=== PATIENT | male | born 1955 | race Caucasian/White ===

== ENCOUNTER → 2018-08-23 12:50 | Outpatient (CLI) | payer MEDICARE, SELFPAY ==
[2018-08-23 13:10] LABS: D-Dimer Quantitative (DVT/PE) < 0.27 FEU/ug/m (0.27-0.49)
--- OUTSIDE RECORDS SUMMARY | 2018-10-16 20:02 | XMS RPT_ITS ---
:1955 Author Organization [facility] Care Team Providers Name Role Phone WOO CHANDLER Referring Unavailable WOO CHANDLER Attending Unavailable WOO CHANDLER Referring Unavailable WOO CHANDLER Referring Unavailable PASTORA BEAULIEU (GLOBAL SAFETY OFFICER) Attending Unavailable PASTORA BEAULIEU (GLOBAL SAFETY OFFICER) Referring Unavailable PASTORA BEAULIEU (GLOBAL SAFETY OFFICER) Referring Unavailable WOO CHANDLER Referring Unavailable WOO CHANDLER Attending Unavailable WOO CHANDLER Referring Unavailable PHYSICIAN, NONE Primary Care Unavailable GRANT ALEXANDRA MD Admitting Unavailable GRANT ALEXANDRA MD Attending Unavailable NoKaren judd Attending Unavailable Gordo Gonzalez Attending Unavailable Woo Chandler Referring Unavailable Woo Chandler Primary Care Unavailable Woo Chandler Attending Unavailable Woo Chandler Primary Care Unavailable Woo Chandler Referring Unavailable PROBLEMS PROBLEMS DATE TYPE CONDITION / CODE ATTENDING STATUS SOURCE 07/24/2015 Active Hyperlipidemia, NA Active [facility] unspecified / [facility] [place] E78.5(ICD-10) Repository 08/24/2018 Unknown M79.89 - Other Chandler, Active [facility] specified soft [facility] tissue disorders [facility] / M79.89(ICD-10) Repository 08/24/2018 Unknown M79.661 - Pain in Chandler, Active [facility] right lower leg / [facility] M79.661(ICD-10) Hospital Repository 08/23/2018 Active Other specified NA Active [facility] soft tissue [facility] [place] disorders / Repository M79.89(ICD-10) 08/23/2018 Active Pain in right NA Active [facility] lower leg / [facility] [place] M79.661(ICD-10) Repository 10/26/2015 Active Elevated prostate NA Active [facility] specific antigen [facility] [place] (PSA) / Repository R97.20(ICD-10) 07/24/2015 Active Gout, unspecified NA Active [facility] / M10.9(ICD-10) [facility] [place] Repository 07/24/2015 Active Other abnormal NA Active [facility] glucose / [facility] [place] R73.09(ICD-10) Repository PROCEDURES PROCEDURES No Procedure Records FoundRESULTS RESULTS PROGRESS Observed: 10/07/2018 Status: COMPLETED Source: [place] 9:07 AM [facility] RE[facility] HNO ID: [id number] Author: Woo Chandler Service: (none) Author Type: Physician Type: Progress Notes Filed: 10/07/2018 9:40 AM Note Text: This note was created using [employer]. Subjective Patient presents with: Physical Shane Vneus Joe was here for above. He was admitted in August 2018 for chest pain and stress test was negative. His hypertension, lipids, gout, and depression was controlled. Depression was controlled. He was aware of the need to lose weight and exercise more regularly. 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, cognitive deficits - Hyperlipidemia 07/24/2015 - Impaired glucose metabolism 07/24/2015 - Patent foramen ovale 05/2005 small, negative bubble study 01/15/2015 - Seasonal allergies 10/01/2015 PAST SURGICAL HISTORY Procedure Laterality Date - COLONOSCOP W/ OR W/O BRS SPEC 2005 Colonoscopy, negative - COLONOSCOP W/ OR W/O BRSH SPEC 10/15/15 Colonoscopy - LEFT HEART CATH,PERCUTANEOUS 03/19/2016 Cardiac cath, L heart FAMILY HISTORY Problem Relation Age of Onset - Diabetes Father - Coronary Artery Disease Father - Stroke Father 79 - Cancer Mother 58 - Diabetes Brother - Stroke Brother - Coronary Artery Disease Brother - Peripheral Artery Disease Brother amputee - None Sister - Colon Cancer Paternal Grandfather - Arthritis Sister rheumatoid - Cancer Sister lung cancer - GI Sister Crohn's - Skin Cancer Sister Social History Marital status: Spouse name: Years of education: Number of children: Occupational History Occupation Employer Comment SSD since stroke Social History Main Topics Smoking status: Former Smoker Packs/day: 0.50 Years: 8.00 Types: Cigarettes Quit date: 09/21/1979 Smokeless tobacco: Former User Types: Snuff Quit date: 07/22/2017 Alcohol use: Yes 36.0 oz/week Cans of Beer (12oz): 24 per week Comment: CAGE negative. 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 colchicine 0.6 mg tablet Take 2 tablets by mouth once as needed for gout attack. Take 1 tablet one hour later as needed. Etodolac 500 mg tablet Take 1 tablet by mouth twice daily as needed (gout attack. Take with food.). aspirin, enteric coated (ADULT LOW DOSE ASPIRIN) 81 mg EC tablet Take 1 tablet by mouth twice daily. B Complex Vitamins (SUPER B-50 COMPLEX) capsule Take 1 capsule by mouth once daily. No current facility-administered medications for this visit. Review of Systems Constitutional: Negative. HENT: Negative. Respiratory: Negative. Cardiovascular: Negative. Gastrointestinal: Negative. Genitourinary: Negative. Musculoskeletal: Negative. Neurological: Negative. Objective BP 124/84 (BP Site: Left Arm, BP Position: Sitting, BP Cuff Size: Large Adult) Pulse 84 Temp 36.5 ?C (97.7 ?F) (Temporal Artery) Resp 20 Ht 184.8 cm (6' 0.75) Wt 121.6 kg (268 lb) BMI 35.60 kg/m? Physical Exam Constitutional: He is oriented to person, place, and time. He appears well-nourished. Eyes: Conjunctivae are normal. No scleral icterus. Neck: No JVD present. Carotid bruit is not present. Cardiovascular: Normal heart sounds. Exam reveals no gallop. No murmur heard. Pulmonary/Chest: Breath sounds normal. Abdominal: Soft. There is no tenderness. Musculoskeletal: Normal range of motion. He exhibits no edema or tenderness. Neurological: He is alert and oriented to person, place, and time. Coordination normal. Psychiatric: He has a normal mood and affect. Component Latest Ref Rng AND Units 09/28/2018 Protein, Total 6.3 - 8.0 g/dL 7.7 Albumin 3.9 - 4.9 g/dL 4.1 Calcium 8.5 - 10.2 mg/dL 10.2 Bilirubin, Total 0.2 - 1.3 mg/dL 0.4 Alkaline Phosphatase 38 - 113 U/L 81 AST 14 - 40 U/L 25 Glucose 74 - 99 mg/dL 141 (H) BUN 9 - 24 mg/dL 17 Creatinine 0.73 - 1.22 mg/dL 1.14 Sodium 136 - 144 mmol/L 136 Potassium 3.7 - 5.1 mmol/L 4.0 Chloride 97 - 105 mmol/L 100 CO2 22 - 30 mmol/L 19 (L) Anion Gap 9 - 18 mmol/L 17 ALT 10 - 54 U/L 31 eGFR- >60 eGFR-All Other Races . >60 Cholesterol, Total <200 mg/dL 196 Triglyceride <150 mg/dL 207 (H) HDL Cholesterol >39 mg/dL 52 LDL Cholesterol <100 mg/dL 103 (H) Non HDL Cholesterol <130 mg/dL 144 (H) Fasting Time hrs 13 VLDL Cholesterol <30 mg/dL 41 (H) TC:HDL Ratio <5.10 3.77 LDL:HDL Ratio <2.54 1.98 Hemoglobin A1C 4.3 - 5.6 % 6.3 (H) Estimated Average Glucose mg/dL 134 PSA 0.00 - 2.59 ng/mL 2.72 (H) Assessment and Plan 1. Routine medical exam - ICD9: V70.0, ICD10: Z00.00 (primary diagnosis) - Recommended regular aerobic exercise. - Discussed need and benefit for weight loss. BMI 35.60 kg/(m2) - Vaccination(s) recommended today: Shingrix 2. Impaired glucose metabolism - ICD9: 790.29, ICD10: R73.09 Worse. I stressed lifestyle change. He declined medication. - COMP METABOLIC PANEL - HGB A1C 3. Hyperlipidemia, unspecified hyperlipidemia type - ICD9: 272.4, ICD10: E78.5 ACC/AHA estimated 10 year ASCVD risk: 11 %. To reduce risk, heart healthy diet is recommended. Also increased dose statin therapy recommended. Discussed medication dosage, usage, goals of therapy, and side effects. - LIPID PANEL BASIC - ATORVASTATIN 20 MG TABLET. Increase to two tablets. Call for side effects or change in tablet. 4. Essential hypertension - ICD9: 401.9, ICD10: I10 - good control 5. Depression, unspecified depression type - ICD9: 311, ICD10: F32.9 Controlled. 6. Elevated prostate specific antigen (PSA) - ICD9: 790.93, ICD10: R97.20 Stable. Recheck annually. 7. Obesity, Class II, BMI 35-39.9 - ICD9: 278.00, ICD10: E66.9 Weight loss. See printed instructions or information. Woo Chandler MD CNOV Observed: 10/07/2018 Status: COMPLETED Source: [place] 8:40 AM [facility] REPOSITORY Office Visit (INTMWS) SHANE JOE ([id number]) 1955 M Date Time Provider Department 10/07/18 8:40 AM WOO CHANDLER INTMWS During your visit today, we recorded the following information about you: Temperature Pulse Respiration Blood pressure 97.7 degrees 84/minute 20/minute 124/84 Weight Height 121.6 kg 1.848 m Woo Chandler MD 10/07/2018 9:40 AM Signed This note was created using NoteWriter. Subjective Patient presents with: Physical Shane Joe was here for above. He was admitted in August 2018 for chest pain and stress test was negative. His hypertension, lipids, gout, and depression was controlled. Depression was controlled. He was aware of the need to lose weight and exercise more regularly. 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, cognitive deficits - Hyperlipidemia 07/24/2015 - Impaired glucose metabolism 07/24/2015 - Patent foramen ovale 05/2005 small, negative bubble study 01/15/2015 - Seasonal allergies 10/01/2015 PAST SURGICAL HISTORY Procedure Laterality Date - COLONOSCOP W/ OR W/O [facility] SPEC 2005 Colonoscopy, negative - COLONOSCOP W/ OR W/O BRSH SPEC 10/15/15 Colonoscopy - LEFT HEART CATH,PERCUTANEOUS 03/19/2016 Cardiac cath, L heart FAMILY HISTORY Problem Relation Age of Onset - Diabetes Father - Coronary Artery Disease Father - Stroke Father 79 - Cancer Mother 58 - Diabetes Brother - Stroke Brother - Coronary Artery Disease Brother - Peripheral Artery Disease Brother amputee - None Sister - Colon Cancer Paternal Grandfather - Arthritis Sister rheumatoid - Cancer Sister lung cancer - GI Sister Crohn's - Skin Cancer Sister Social History Marital status: Spouse name: Years of education: Number of children: Occupational History Occupation Employer Comment SSD since stroke Social History Main Topics Smoking status: Former Smoker Packs/day: 0.50 Years: 8.00 Types: Cigarettes Quit date: 09/21/1979 Smokeless tobacco: Former User Types: Snuff Quit date: 07/22/2017 Alcohol use: Yes 36.0 oz/week Cans of Beer (12oz): 24 per week Comment: CAGE negative. 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 colchicine 0.6 mg tablet Take 2 tablets by mouth once as needed for gout attack. Take 1 tablet one hour later as needed. Etodolac 500 mg tablet Take 1 tablet by mouth twice daily as needed (gout attack. Take with food.). aspirin, enteric coated (ADULT LOW DOSE ASPIRIN) 81 mg EC tablet Take 1 tablet by mouth twice daily. B Complex Vitamins (SUPER B-50 COMPLEX) capsule Take 1 capsule by mouth once daily. No current facility-administered medications for this visit. Review of Systems Constitutional: Negative. HENT: Negative. Respiratory: Negative. Cardiovascular: Negative. Gastrointestinal: Negative. Genitourinary: Negative. Musculoskeletal: Negative. Neurological: Negative. Objective BP 124/84 (BP Site: Left Arm, BP Position: Sitting, BP Cuff Size: Large Adult) Pulse 84 Temp 36.5 ?C (97.7 ?F) (Temporal Artery) Resp 20 Ht 184.8 cm (6' 0.75) Wt 121.6 kg (268 lb) BMI 35.60 kg/m? Physical Exam Constitutional: He is oriented to person, place, and time. He appears well-nourished. Eyes: Conjunctivae are normal. No scleral icterus. Neck: No JVD present. Carotid bruit is not present. Cardiovascular: Normal heart sounds. Exam reveals no gallop. No murmur heard. Pulmonary/Chest: Breath sounds normal. Abdominal: Soft. There is no tenderness. Musculoskeletal: Normal range of motion. He exhibits no edema or tenderness. Neurological: He is alert and oriented to person, place, and time. Coordination normal. Psychiatric: He has a normal mood and affect. Component Latest Ref Rng AND Units 09/28/2018 Protein, Total 6.3 - 8.0 g/dL 7.7 Albumin 3.9 - 4.9 g/dL 4.1 Calcium 8.5 - 10.2 mg/dL 10.2 Bilirubin, Total 0.2 - 1.3 mg/dL 0.4 Alkaline Phosphatase 38 - 113 U/L 81 AST 14 - 40 U/L 25 Glucose 74 - 99 mg/dL 141 (H) BUN 9 - 24 mg/dL 17 Creatinine 0.73 - 1.22 mg/dL 1.14 Sodium 136 - 144 mmol/L 136 Potassium 3.7 - 5.1 mmol/L 4.0 Chloride 97 - 105 mmol/L 100 CO2 22 - 30 mmol/L 19 (L) Anion Gap 9 - 18 mmol/L 17 ALT 10 - 54 U/L 31 eGFR- >60 eGFR-All Other Races . >60 Cholesterol, Total <200 mg/dL 196 Triglyceride <150 mg/dL 207 (H) HDL Cholesterol >39 mg/dL 52 LDL Cholesterol <100 mg/dL 103 (H) Non HDL Cholesterol <130 mg/dL 144 (H) Fasting Time hrs 13 VLDL Cholesterol <30 mg/dL 41 (H) TC:HDL Ratio <5.10 3.77 LDL:HDL Ratio <2.54 1.98 Hemoglobin A1C 4.3 - 5.6 % 6.3 (H) Estimated Average Glucose mg/dL 134 PSA 0.00 - 2.59 ng/mL 2.72 (H) Assessment and Plan 1. Routine medical exam - ICD9: V70.0, ICD10: Z00.00 (primary diagnosis) - Recommended regular aerobic exercise. - Discussed need and benefit for weight loss. BMI 35.60 kg/(m2) - Vaccination(s) recommended today: Shingrix 2. Impaired glucose metabolism - ICD9: 790.29, ICD10: R73.09 Worse. I stressed lifestyle change. He declined medication. - COMP METABOLIC PANEL - HGB A1C 3. Hyperlipidemia, unspecified hyperlipidemia type - ICD9: 272.4, ICD10: E78.5 ACC/AHA estimated 10 year ASCVD risk: 11 %. To reduce risk, heart healthy diet is recommended. Also increased dose statin therapy recommended. Discussed medication dosage, usage, goals of therapy, and side effects. - LIPID PANEL BASIC - ATORVASTATIN 20 MG TABLET. Increase to two tablets. Call for side effects or change in tablet. 4. Essential hypertension - ICD9: 401.9, ICD10: I10 - good control 5. Depression, unspecified depression type - ICD9: 311, ICD10: F32.9 Controlled. 6. Elevated prostate specific antigen (PSA) - ICD9: 790.93, ICD10: R97.20 Stable. Recheck annually. 7. Obesity, Class II, BMI 35-39.9 - ICD9: 278.00, ICD10: E66.9 Weight loss. See printed instructions or information. MD Woo Cardenas MD 10/07/2018 9:35 AM Addendum LOW CARB DIET FOR WEIGHT LOSS. EDGAR OVER THE COUNTER MEDICATION FOR WEIGHT LOSS. INCREASE CHOLESTEROL MEDICATION TO TWO TABLETS AND CALL FOR CHANGE IN PRESCRIPTION BEFORE NEXT REFILL. Referring Provider: WOO CHANDLER [[id number]] Allergies As of Date: 10/07/2018 (No Known Allergies) Date Reviewed: 10/07/2018 Reviewed by: Amie Huynh LPN - Fully Assessed Reason for Visit: Physical [83] Primary Visit Diagnosis:Routine medical exam [Z00.00] Other Visit Diagnoses:Impaired glucose metabolism [R73.09] Hyperlipidemia, unspecified hyperlipidemia type [E78.5] Essential hypertension [I10] Depression, unspecified depression type [F32.9] Elevated prostate specific antigen (PSA) [R97.20] Obesity, Class II, BMI 35-39.9 [E66.9] Order(s):COMP METABOLIC PANEL [SQCMP] Order #: [id number] FUTURE HGB A1C [KEDVU0I] Order #: [id number] FUTURE LIPID PANEL BASIC [SQLIPB] Order #: [id number] FUTURE atorvastatin (LIPITOR) 20 mg tabletTake 2 tablets by mouth daily at bedtime.Disp: Rfl: Prescriptions as of 10/07/2018 Sig: ATORVASTATIN 20 MG TABLET Take 2 tablets by mouth daily* ALLOPURINOL 300 MG TABLET TAKE 1 TABLET DAILY PAROXETINE 20 MG TABLET TAKE 1 TABLET DAILY TAMSULOSIN 0.4 MG CAPSULE TAKE 1 CAPSULE DAILY AT BEDTI* LISINOPRIL 10 MG TABLET Take 1 tablet by mouth once d* COLCHICINE 0.6 MG TABLET Take 2 tablets by mouth once * ETODOLAC 500 MG TABLET Take 1 tablet by mouth twice * ASPIRIN 81 MG TABLET,DELAYED * Take 1 tablet by mouth twice * VITAMIN B COMPLEX CAPSULE Take 1 capsule by mouth once * Problem List As Of Date 10/07/2018 Noted Resolved Impaired glucose metabolism [R73.09] INVALID FOR* Gout with manifestations [M10.9] INVALID FOR* Hyperlipidemia [E78.5] INVALID FOR* Essential hypertension [I10] INVALID FOR* Seasonal allergies [J30.2] INVALID FOR* Depression [F32.9] INVALID FOR* Benign non-nodular prostatic hyperplasia with l*INVALID FOR* Elevated prostate specific antigen (PSA) [R97.2*INVALID FOR* Mild left inguinal hernia [K40.90] INVALID FOR* Obesity, Class II, BMI 35-39.9 [E66.9] INVALID FOR* Other instructions from your clinician: LOW CARB DIET FOR WEIGHT LOSS. EDGAR OVER THE COUNTER MEDICATION FOR WEIGHT LOSS. INCREASE CHOLESTEROL MEDICATION TO TWO TABLETS AND CALL FOR CHANGE IN PRESCRIPTION BEFORE NEXT REFILL. Prescriptions ordered this encounter Disp Refills Start End ATORVASTATIN 20 MG TABLET 10/07/2018 Class: Med Update Route: ORAL Sig: Take 2 tablets by mouth daily at bedtime. Medications Discontinued During This Encounter predniSONE (DELTASONE) 10 mg tablet 30 t* 0 08/23/2018 10/07/2018 Sig: Take 4 tabs daily x 3 days, then 3 tabs x 3 days, 2 tabs x 3 days, then 1 tab x3 days with food. Patient not taking: Reported on 10/07/2018 Disc: Reason for discontinue is not on file. atorvastatin (LIPITOR) 20 mg tablet 90 t* 3 09/13/2018 10/07/2018 Sig: TAKE 1 TABLET DAILY AT BEDTIME FOR CHOLESTEROL Disc: Reason for discontinue is not on file. Disposition: Return in about 6 months (around 04/06/2019). Follow-up and Disposition History Recorded Encounter Status:Closed by WOO CHANDLER MD on 10/07/18 PSA, DIAGNOSTIC Collected: 09/28/2018 Status: F Source: [place] 8:15 AM [facility] REPOSITORY TYPE CODE TESTS RESULT OUT OF REFERENCE UNITS RANGE LAB PSA 0.00-2.59 ng/mL PSA, High Diagnostic 2.72 Result Comment: Total PSA test methodology used is the Electrochemiluminescence Immunoassay. The presence of an abnormal result flag in this range (2.6 to 4.0 ng/mL) should not necessarily be an automatic indicator for prostate biopsy. For an individual patient, the significance of a PSA level should be interpreted in a broad clinical context, including age, race, family history, digital rectal exam, prostate size, results of prior te sting (prostate biopsy, free PSA, PCA3), and use of 5-alpha reductase inhibitors. Considering the high incidence of asymptomatic cancer in the general population that may not pose an ultimate risk to a patient, the decision to recommend urological evaluation or prostate biopsy should be individualized after consideration of all these factors. REFERENCE: Jose Ibrahim M.D., M.P.H., Delgado Glaser M.D., Ph.D., Jose G Monterroso M.D., Mallory Escamilla M.P.H., Dawn Craig Sc.D. Effect of Verification Bias on Screening for Prostate Cancer by Measurement of Prostatic Specific Antigen. N Engl J Med 2003,349:335-42. Performed By: #### PSA, CMP, LIPB, HBA1C #### [facility] [address] [place], [place] [address] COMP METABOLIC PANEL Collected: 09/28/2018 Status: F Source: [place] 8:15 AM [facility] REPOSITORY TYPE CODE TESTS RESULT OUT OF REFERENCE UNITS RANGE LAB TP 6.3-8.0 g/dL Protein, Total 7.7 LAB ALB 3.9-4.9 g/dL Albumin 4.1 LAB CA 8.5-10.2 mg/dL Calcium, Total 10.2 LAB TBIL 0.2-1.3 mg/dL Bilirubin, Total 0.4 LAB ALKP 38-113 U/L Alkaline Phosphatase 81 LAB AST 14-40 U/L AST 25 LAB GLU 74-99 mg/dL Glucose High 141 Result Comment: The [place] Diabetes Association (ADA) provides guidance for cutoff values for fasting glucose and random glucose. The ADA defines fasting as no caloric intake for at least 8 hours. Fas ting plasma glucose results between 100 to 125 mg/dL indicate increased risk for diabetes (prediabetes). Fasting plasma glucose results greater than or equal to 126 mg/dL meet the criteria for diagnosis of diabetes. In the absence of unequivocal hyperglycemia, results should be confirmed by repeat testing. In a patient with classic symptoms of hyperglycemia or hyperglycemic crisis, random plasma glucose results greater than or equal to 200 mg/dL meet the criteria for diagnosis of diabetes. Reference: Standards of Medical Care in Diabetes 2016, [place] Diabetes Association. Diabetes Care. 2016.39(Suppl 1). LAB BUN 9-24 mg/dL BUN 17 LAB CRET 0.73-1.22 mg/dL Creatinine 1.14 LAB NA 136-144 mmol/L Sodium 136 LAB K 3.7-5.1 mmol/L Potassium 4.0 LAB CL 97-105 mmol/L Chloride 100 LAB CO2 22-30 mmol/L CO2 Low 19 LAB AGAP 9-18 mmol/L Anion Gap 17 LAB ALT 10-54 U/L ALT 31 LAB GFRAA eGFR- Amer. >60 LAB GFRNAA . eGFR-All Other Races >60 Result Comment: eGFR (Estimated GFR) Units of measure: mL/min/1.73 meters squared eGFR is derived from the reexpressed MDRD Study equation using the following parameters: serum creatinine, age, gender and race. The creatinine assay has been calibrated to be traceable to IDMS. An eGFR <60 mL/min/1.73m2 for >3 months is consistent with chronic kidney disease. Refer to KDOQI guidelines for clinical interpretation. In patients with unstable renal function, e.g. those with acute kidney injury, the eGFR may not accurately reflect actual GFR. Performed By: #### PSA, CMP, LIPB, HBA1C #### [facility] [address] [place], [place] [address] LIPID PANEL, BASIC Collected: 09/28/2018 Status: F Source: [place] 8:15 AM [facility] REPOSITORY TYPE CODE TESTS RESULT OUT OF REFERENCE UNITS RANGE LAB CHOL <200 mg/dL Cholesterol 196 Result Comment: <200 mg/dL, Desirable 200-239 mg/dL, Borderline high >239 mg/dL, High LAB TRIGLY <150 mg/dL Triglyceride High 207 Result Comment: <150 mg/dL, Normal 150-199 mg/dL, Borderline high 200-499 mg/dL, High >499 mg/dL, Very high LAB HDL >39 mg/dL HDL-Cholesterol 52 Result Comment: 40-59 mg/dL, Acceptable >59 mg/dL, High: Negative risk factor for coronary heart disease <40 mg/dL, Low: Positive risk factor for coronary heart disease LAB LDL <100 mg/dL LDL-Cholesterol High 103 Result Comment: <100 mg/dL, Optimal 100-129 mg/dL, Near optimal/above optimal 130-159 mg/dL, Borderline high 160-189 mg/dL, High >189 mg/dL, Very high Secondary prevention optimal LDL Cholesterol levels are recommended to be < 70 mg/dL LAB NONHDL <130 mg/dL Non HDL High Cholesterol 144 Result Comment: <130 mg/dL, Optimal 130-159 mg/dL, Near optimal/above optimal 160-189 mg/dL, Borderline high 190-219 mg/dL, High >219 mg/dL, Very high Secondary prevention optimal non HDL Cholesterol levels are recommended to be < 100 mg/dL LAB FT hrs Fasting Time 13 LAB VLDL <30 mg/dL High VLDL Cholesterol 41 LAB TCHDL <5.10 TC:HDL Ratio 3.77 LAB LDLHDL <2.54 LDL:HDL Ratio 1.98 Result Comment: Reference: 1. National Cholesterol Education Program ATP III Guideline At-A-Glance Quick Desk Reference: National Heart, Lung, and Blood [place]. National Institutes of Health. 2001: NIH Publication No. 01-3305. 2. An International Atherosclerosis Society position paper: global recommendations for the management of dyslipidemia: executive summary, Atherosclerosis. 2014: 232(2):410-413. Performed By: #### PSA, CMP, LIPB, HBA1C #### [facility] [address] [place], [place] [address] HEMOGLOBIN A1C Collected: 09/28/2018 Status: F Source: [place] 8:15 AM [facility] REPOSITORY TYPE CODE TESTS RESULT OUT OF REFERENCE UNITS RANGE LAB HGBA1C 4.3-5.6 % High Hemoglobin A1c 6.3 Result Comment: [place] Diabetes Association guidelines indicate that patients with HgbA1c in the range 5.7-6.4% are at increased risk for development of diabetes, and intervention by lifestyle modification may be beneficial. HgbA1c greater or equal to 6.5% is considered diagnostic of diabetes. LAB HBA0 mg/dL Est. Average Glucose 134 Result Comment: eAG: (Estimated average glucose) is a calculated value from HgbA1c and is teleservices representative of the average blood glucose level in the last 2-3 month period. Performed By: #### PSA, CMP, LIPB, HBA1C #### [facility] [place] [address] [place], [place] [address] PROGRESS Observed: 09/08/2018 Status: COMPLETED Source: [place] 10:50 AM [facility] REPOSITORY HNO ID: [id number] Author: Syeda Fonseca LPN Service: (none) Author Type: (none) Type: Progress Notes Filed: 09/08/2018 12:56 PM Note Text: Called pt and reviewed he was admitted to [place] 09/06/18 and discharged 09/07/18 for acute chest pain. Records rec'd. He has a yearly appt with pcp arranged already for 10/07/18. Pt declined sooner hospital follow up. He reports he feels well. DON Observed: 09/08/2018 Status: COMPLETED Source: [place] 12:00 AM [facility] REPOSITORY Patient Outreach (INTMWS) SHANE JOE ([id number]) 1955 M Date Time Provider Department 09/08/18 WOO CHANDLER INTMWS During your visit today, we recorded the following information about you: Syeda Fonseca LPN 09/08/2018 12:56 PM Signed Called pt and reviewed he was admitted to [place] 09/06/18 and discharged 09/07/18 for acute chest pain. Records rec'd. He has a yearly appt with pcp arranged already for 10/07/18. Pt declined sooner hospital follow up. He reports he feels well. Allergies As of Date: 09/08/2018 (No Known Allergies) Date Reviewed: 08/23/2018 Reviewed by: Uzma Jones LPN - Fully Assessed Reason for Visit: Transition Of Care [4074] Prescriptions as of 09/08/2018 Sig: ALLOPURINOL 300 MG TABLET Take 1 tablet by mouth once d* ASPIRIN 81 MG TABLET,DELAYED * Take 1 tablet by mouth twice * ATORVASTATIN 20 MG TABLET Take 1 tablet by mouth daily * VITAMIN B COMPLEX CAPSULE Take 1 capsule by mouth once * COLCHICINE 0.6 MG TABLET Take 2 tablets by mouth once * ETODOLAC 500 MG TABLET Take 1 tablet by mouth twice * LISINOPRIL 10 MG TABLET Take 1 tablet by mouth once d* PAROXETINE 20 MG TABLET Take 1 tablet by mouth once d* PREDNISONE 10 MG TABLET Take 4 tabs daily x 3 days, t* TAMSULOSIN 0.4 MG CAPSULE Take 1 capsule by mouth daily* Problem List As Of Date 09/08/2018 Noted Resolved Impaired glucose metabolism [R73.09] INVALID FOR* Gout with manifestations [M10.9] INVALID FOR* Hyperlipidemia [E78.5] INVALID FOR* Essential hypertension [I10] INVALID FOR* Seasonal allergies [J30.2] INVALID FOR* Depression [F32.9] INVALID FOR* Benign non-nodular prostatic hyperplasia with l*INVALID FOR* Elevated prostate specific antigen (PSA) [R97.2*INVALID FOR* Mild left inguinal hernia [K40.90] INVALID FOR* Encounter Status:Closed by WOO CHANDLER MD on 09/08/18 NM MYOCARDIAL SPECT Observed: 09/07/2018 Status: F Source: [place] STRESS/REST 9:00 AM [facility] REPOSITORY ORIGINAL NM MYOCARDIAL SPECT STRESS/REST CLINICAL STATEMENT: chest pain TECHNIQUE: Lexiscan dose:0.4 mg Radiopharmaceutical (stress): Tc-99m Sestamibi Dose:11 mCi Radiopharmaceutical (rest): Tc-99m Sestamibi Dose:31.7 mCi SPECT acquisition and processing Reconstruction and reorientation of SPECT images into short axis, vertical and horizontal long axis planes Quantitative LVEF assessment COMPARISON:None REPORT:LEFT ventricle appears normal in size on both stress and rest images. On the resting images there is reduced radiotracer uptake involving the inferior and inferoseptal region which improves on the stress images, suggestive of inferior diaphragmatic attenuation artifact. R est of the myocardium has homogenous radiotracer uptake on both stress and rest images. Gated SPECT imaging reveal normal wall motion and normal end- systolic brightening and thickening of all myocardial segments. Calculated LVEF 74%. LEFT ventricle end-diastolic volume 56 mL. Tid ratio 0.89. IMPRESSION: 1. No evidence of inducible ischemia or prior myocardial infarction. 2. Normal wall motion and normal LEFT ventricle systolic function, LVEF 74%. 3. Inferior diaphragmatic attenuation artifact noted. 4. No prior study available for comparison. Interpreted By: Jack Larson Preliminary Report By: Jack Larson Electronically Signed By: Jack Larson Dictated Date: 09/07/2018 1:39:52 PM Prelim Date: 09/07/2018 1:39:52 PM Sign Date: 09/07/2018 1:42:22 PM CBC Collected: 09/07/2018 Status: F Source: [place] 5:19 AM [facility] REPOSITORY TYPE CODE TESTS RESULT OUT OF REFERENCE UNITS RANGE LAB WBC(LOINC) 4.60-10.80 10 3/mcL WBC 9.30 LAB RBCCT(LOINC 4.04-6.13 10 6/mcL ) RBC 5.04 LAB HGB(LOINC) 14.0-18.0 G/dL Hgb 15.7 LAB HCT(LOINC) 42.0-52.0 % Hct 46.4 LAB MCV(LOINC) 80.0-94.0 fL MCV 92.0 LAB MCH(LOINC) 27.0-31.2 pg MCH 31.2 LAB MCHC(LOINC) 31.8-35.4 G/dL MCHC 33.9 LAB RDW(LOINC) 11.5-14.5 % RDW 14.2 LAB PLT(LOINC) 130-400 10 3/mcL Platelet 297 LAB MPV(LOINC) 7.4-10.4 fL Low MPV 7.3 Performed By: #### CBC, ADIFF, ANEU #### [address] [address] #### BMP, GFR, TROP #### [place] [address] .AUTO DIFF Collected: 09/07/2018 Status: F Source: [facility] 5:19 AM [facility] REPOSITORY TYPE CODE TESTS RESULT OUT OF REFERENCE UNITS RANGE LAB YENI(LOINC) 37.0-80.0 % Neutrophil % 59.8 LAB LYM(LOINC) 10.0-50.0 % Lymphocyte % 31.4 LAB MON(LOINC) 1.7-13.0 % Monocyte % 7.5 LAB EO(LOINC) 0.0-7.0 % Eosinophil % 0.8 LAB BAS(LOINC) 0.0-2.5 % Basophil % 0.5 LAB ABLYM(LOIN 0.77-3.85 10 3/mcL C) Lymphocyte, 2.90 Absolute LAB ERLIN(LOINC 0.15-1.00 10 3/mcL ) Monocyte, 0.70 Absolute LAB AEOS(LOINC 0.00-0.40 10 3/mcL ) Eosinophil, 0.10 Absolute LAB ABAS(LOINC 0.00-0.19 10 3/mcL ) Basophil, 0.00 Absolute Performed By: #### CBC, ADIFF, ANEU #### [address] [address] #### BMP, GFR, TROP #### [address] [address] .NEUABS Collected: 09/07/2018 Status: F Source: [facility] 5:19 AM [facility] REPOSITORY TYPE CODE TESTS RESULT OUT OF REFERENCE UNITS RANGE LAB ANEU(LOINC) 2.85-6.16 10 3/mcL Neutrophil, 5.60 Absolute Performed By: #### CBC, ADIFF, ANEU #### [address] [address] #### BMP, GFR, TROP #### [place] [address] BMP Collected: 09/07/2018 Status: F Source: [facility] 5:19 AM [facility] REPOSITORY TYPE CODE TESTS RESULT OUT OF REFERENCE UNITS RANGE LAB GLU(LOINC) 80-115 mg/dL Glucose High Level 137 LAB NA(LOINC) 136-145 mmol/L Sodium Level 137 LAB K(LOINC) 3.5-5.1 mmol/L Potassium Level 4.5 LAB CL(LOINC) 98-107 mmol/L Chloride 102 LAB CO2(LOINC) 23-31 mmol/L CO2 27 LAB EBAL(LOINC mEq/L ) Electrolyte Balance 8.0 LAB BUN(LOINC) 7-18 mg/dL BUN 15 LAB CRE(LOINC) 0.70-1.30 mg/dL Creatinine Lvl (s) 1.11 LAB BC(LOINC) 7-27 ratio BUN/Creatinine 14 Ratio LAB CA(LOINC) 8.4-10.2 mg/dL Calcium Lvl 8.8 Performed By: #### CBC, ADIFF, ANEU #### [address] [address] #### BMP, GFR, TROP #### [address] [address] .GFR Collected: 09/07/2018 Status: F Source: [facility] 5:19 AM [facility] REPOSITORY TYPE CODE TESTS RESULT OUT OF REFERENCE UNITS RANGE LAB GFRAA(LOINC ml/min/1.73 ) sqm GFR 81 [place] Result Comment: GFR Population mean for , Non- Americans Ages 20-29 = 116 mL/min/1.73 sq.m. Ages 30-39 = 107 mL/min/1.73 sq.m. Ages 40-49 = 99 mL/min/1.73 sq.m. Ages 50-59 = 93 mL/min/1.73 sq.m. Ages 60-69 = 85 mL/min/1.73 sq.m. Ages 70+ = 75 mL/min/1.73 sq.m. Chronic Kidney Disease: Less than 60 mL/min/1.73 square meters End Stage Renal Disease: Less than 15 mL/min/1.73 square meters LAB GFRNO(LOINC) ml/min/1.73sqm GFR Non- 67 Result Comment: GFR Population mean for , Non- Americans Ages 20-29 = 116 mL/min/1.73 sq.m. Ages 30-39 = 107 mL/min/1.73 sq.m. Ages 40-49 = 99 mL/min/1.73 sq.m. Ages 50-59 = 93 mL/min/1.73 sq.m. Ages 60-69 = 85 mL/min/1.73 sq.m. Ages 70+ = 75 mL/min/1.73 sq.m. Chronic Kidney Disease: Less than 60 mL/min/1.73 square meters End Stage Renal Disease: Less than 15 mL/min/1.73 square meters Performed By: #### CBC, FAUSTINO, ANEU #### [address] [address] #### BMP, GFR, TROP #### [address] [address] TROP Collected: 09/07/2018 Status: F Source: [facility] 5:19 AM [facility] REPOSITORY TYPE CODE TESTS RESULT OUT OF REFERENCE UNITS RANGE LAB TROP(LOINC) 0.000-0.040 ng/mL Troponin <0.020 Result Comment: Troponin I reference range: 0.00-0.040 ng/mL Negative and non-diagnostic. >0.040 ng/mL Consistent with cardiac damage, increased clinical risk and possibility of myocardial infarction. Serial measurements, a rise & fall in test results, clinical history, appropriate symptoms and/or ECG changes may help assess possibility of DE. *Other non-acute coronary syndrome conditions such as CHF, myocarditis, pulmonary emboli, sepsis and cardiac surgery could result in myocardial damage and increased troponin levels. Performed By: #### CBC, ADIFF, ANEU #### [facility] [address] [place], [place] [address] #### BMP, GFR, TROP #### [address] [address] TROP Collected: 09/06/2018 Status: F Source: [facility] 8:20 PM [facility] REPOSITORY TYPE CODE TESTS RESULT OUT OF REFERENCE UNITS RANGE LAB TROP(LOINC) 0.000-0.040 ng/mL Troponin <0.020 Result Comment: Troponin I reference range: 0.00-0.040 ng/mL Negative and non-diagnostic. >0.040 ng/mL Consistent with cardiac damage, increased clinical risk and possibility of myocardial infarction. Serial measurements, a rise & fall in test results, clinical history, appropriate symptoms and/or ECG changes may help assess possibility of DE. *Other non-acute coronary syndrome conditions such as CHF, myocarditis, pulmonary emboli, sepsis and cardiac surgery could result in myocardial damage and increased troponin levels. Performed By: #### TROP #### [place] [id number] XR CHEST 2 VIEWS Observed: 09/06/2018 Status: F Source: [place] 3:01 PM [facility] REPOSITORY ORIGINAL 2 views chest CLINICAL HISTORY: Chest pain COMPARISON: None. FINDINGS: The cardiomediastinal contours are normal. The LEFT diaphragm is slightly elevated. There is no focal airspace disease. No nodule or mass is identified. There is no appreciable pleural fluid o r pneumothorax. No suspicious osseous abnormality is identified. Mild degenerative changes seen of the spine. IMPRESSION: 1. No acute radiographic findings. Interpreted By: Meliton Crowley MD Preliminary Report By: Meliton Crowley MD Electronically Signed By: Meliton Crowley MD Dictated Date: 09/06/2018 3:08:45 PM Prelim Date: 09/06/2018 3:08:45 PM Sign Date: 09/06/2018 3:09:31 PM TROP Collected: 09/06/2018 Status: F Source: [place] 2:15 PM [facility] REPOSITORY TYPE CODE TESTS RESULT OUT OF REFERENCE UNITS RANGE LAB TROP(LOINC) 0.000-0.040 ng/mL Troponin <0.020 Result Comment: Troponin I reference range: 0.00-0.040 ng/mL Negative and non-diagnostic. >0.040 ng/mL Consistent with cardiac damage, increased clinical risk and possibility of myocardial infarction. Serial measurements, a rise & fall in test results, clinical history, appropriate symptoms and/or ECG changes may help assess possibility of DE. *Other non-acute coronary syndrome conditions such as CHF, myocarditis, pulmonary emboli, sepsis and cardiac surgery could result in myocardial damage and increased troponin levels. Performed By: #### TROP, GFR, CMP #### [address] [address] #### CBC, ADIFF, ANEU #### [address] [address] CBC Collected: 09/06/2018 Status: F Source: [facility] 2:15 PM [facility] REPOSITORY TYPE CODE TESTS RESULT OUT OF REFERENCE UNITS RANGE LAB WBC(LOINC) 4.60-10.80 10 3/mcL WBC 10.60 LAB RBCCT(LOINC 4.04-6.13 10 6/mcL ) RBC 5.18 LAB HGB(LOINC) 14.0-18.0 G/dL Hgb 15.8 LAB HCT(LOINC) 42.0-52.0 % Hct 47.7 LAB MCV(LOINC) 80.0-94.0 fL MCV 92.2 LAB MCH(LOINC) 27.0-31.2 pg MCH 30.5 LAB MCHC(LOINC) 31.8-35.4 G/dL MCHC 33.1 LAB RDW(LOINC) 11.5-14.5 % RDW 14.0 LAB PLT(LOINC) 130-400 10 3/mcL Platelet 329 LAB MPV(LOINC) 7.4-10.4 fL Low MPV 7.3 Performed By: #### TROP, GFR, CMP #### [address] [address] #### CBC, ADIFF, ANEU #### [address] [address] .AUTO DIFF Collected: 09/06/2018 Status: F Source: [facility] 2:15 PM [facility] REPOSITORY TYPE CODE TESTS RESULT OUT OF REFERENCE UNITS RANGE LAB YENI(LOINC) 37.0-80.0 % Neutrophil % 56.5 LAB LYM(LOINC) 10.0-50.0 % Lymphocyte % 37.7 LAB MON(LOINC) 1.7-13.0 % Monocyte % 4.9 LAB EO(LOINC) 0.0-7.0 % Eosinophil % 0.4 LAB BAS(LOINC) 0.0-2.5 % Basophil % 0.5 LAB ABLYM(LOIN 0.77-3.85 10 3/mcL C) High Lymphocyte, 4.00 Absolute LAB ERLIN(LOINC 0.15-1.00 10 3/mcL ) Monocyte, 0.50 Absolute LAB AEOS(LOINC 0.00-0.40 10 3/mcL ) Eosinophil, 0.00 Absolute LAB ABAS(LOINC 0.00-0.19 10 3/mcL ) Basophil, 0.10 Absolute Performed By: #### TROP, GFR, CMP #### [place] [address] #### CBC, ADIFF, ANEU #### [address] [address] .NEUABS Collected: 09/06/2018 Status: F Source: [facility] 2:15 [facility] REPOSITORY TYPE CODE TESTS RESULT OUT OF REFERENCE UNITS RANGE LAB ANEU(LOINC) 2.85-6.16 10 3/mcL Neutrophil, 6.00 Absolute Performed By: #### TROP, GFR, CMP #### [place] [address] #### CBC, ADIFF, ANEU #### [address] [address] .GFR Collected: 09/06/2018 Status: F Source: [facility] 2:15 PM [facility] REPOSITORY TYPE CODE TESTS RESULT OUT OF REFERENCE UNITS RANGE LAB GFRAA(LOINC ml/min/1.73 ) sqm GFR 83 [place] Result Comment: GFR Population mean for , Non- Americans Ages 20-29 = 116 mL/min/1.73 sq.m. Ages 30-39 = 107 mL/min/1.73 sq.m. Ages 40-49 = 99 mL/min/1.73 sq.m. Ages 50-59 = 93 mL/min/1.73 sq.m. Ages 60-69 = 85 mL/min/1.73 sq.m. Ages 70+ = 75 mL/min/1.73 sq.m. Chronic Kidney Disease: Less than 60 mL/min/1.73 square meters End Stage Renal Disease: Less than 15 mL/min/1.73 square meters LAB GFRNO(LOINC) ml/min/1.73sqm GFR Non- 69 Result Comment: GFR Population mean for , Non- Americans Ages 20-29 = 116 mL/min/1.73 sq.m. Ages 30-39 = 107 mL/min/1.73 sq.m. Ages 40-49 = 99 mL/min/1.73 sq.m. Ages 50-59 = 93 mL/min/1.73 sq.m. Ages 60-69 = 85 mL/min/1.73 sq.m. Ages 70+ = 75 mL/min/1.73 sq.m. Chronic Kidney Disease: Less than 60 mL/min/1.73 square meters End Stage Renal Disease: Less than 15 mL/min/1.73 square meters Performed By: #### TROP, GFR, CMP #### [place] [address] #### CBC, ADIFF, ANEU #### [address] [address] CMP Collected: 09/06/2018 Status: F Source: [facility] 2:15 PM [facility] REPOSITORY TYPE CODE TESTS RESULT OUT OF REFERENCE UNITS RANGE LAB GLU(LOINC) 80-115 mg/dL Glucose Level 112 LAB NA(LOINC) 136-145 mmol/L Low Sodium Level 135 LAB K(LOINC) 3.5-5.1 mmol/L Potassium Level 3.9 LAB CL(LOINC) 98-107 mmol/L Chloride 98 LAB CO2(LOINC) 23-31 mmol/L CO2 26 LAB EBAL(LOINC mEq/L ) Electrolyte Balance 11.0 LAB BUN(LOINC) 7-18 mg/dL BUN 17 LAB CRE(LOINC) 0.70-1.30 mg/dL Creatinine Lvl (s) 1.09 LAB BC(LOINC) 7-27 ratio BUN/Creatinine 16 Ratio LAB CA(LOINC) 8.4-10.2 mg/dL Calcium Lvl 9.5 LAB PROT(LOINC 6.4-8.2 G/dL ) Total High Protein 8.4 LAB ALB(LOINC) 3.4-4.8 G/dL Albumin Level 3.9 LAB GLB(LOINC) G/dL Globulin 4.5 LAB AG(LOINC) 1.1-2.5 ratio Low A/G Ratio 0.9 LAB BILT(LOINC 0.2-1.0 mg/dL ) Bili Total 0.6 LAB AP(LOINC) 40-135 U/L Alk Phos 97 LAB AST(LOINC) 10-40 U/L AST/SGOT 24 LAB ALT(LOINC) 10-35 U/L ALT/SGPT High 39 Performed By: #### TROP, GFR, CMP #### [address] [address] #### CBC, ADIFF, ANEU #### [facility] [address] [place], [place] [address] D DIMER Collected: 08/23/2018 Status: F Source: [place] 12:30 PM [facility] REPOSITORY TYPE CODE TESTS RESULT OUT OF REFERENCE UNITS RANGE LAB DDMER <500 ng/mL FEU Test D sent to [facility]. Result Comment: Account Credited HIDE D-DIMER QUANTITATIVE Collected: 08/23/2018 Status: F Source: [place] (DVT/PE) 12:30 PM [facility] REPOSITORY TYPE CODE TESTS RESULT OUT OF RANGE REFERENCE UNITS LAB L300.8000 0.27-0.49 FEU/ug/m Low D-DIMER < 0.27 QUANT Result Comment: NORMAL D-Dimer level (<0.50) indicates no DVT or PE. Performed By: #### L300.8000 #### [facility] [address] [place], [address] PROGRESS Observed: 08/23/2018 Status: COMPLETED Source: [place] 11:49 AM [facility] REPOSITORY HNO ID: [id number] Author: Pastora Beaulieu (Cns) Service: (none) Author Type: Nurse Specialist Type: Progress Notes Filed: 08/23/2018 12:16 PM Note Text: OUTPATIENT VISIT DATE August 23, 2018 OUTPATIENT VISIT TYPE ESTABLISHED PRIMARY CARE PHYSICIAN: Woo Chandler MD CHIEF COMPLAINT: Patient presents with: Ankle Pain: R ankle History of Present Illness: Shane Joe is a 63 year old male who was last seen 04/2018 by Woo Chandler MD. He has been seen in the past for ACTIVE PROBLEM LIST Impaired Glucose Metabolism Gout With Manifestations Hyperlipidemia Essential Hypertension Seasonal Allergies Depression Benign Non-Nodular Prostatic Hyperplasia With Lower Urinary Tract Symptoms Elevated Prostate Specific Antigen (Psa) Mild Left Inguinal Hernia Since the last visit, he states that he fell asleep in his recliner at home after drinking several beers and had his foot elevated on a table / hard surface for several hours on Thursday. Now noting redness of foot, pain in calf and ankle with flexion, extension and walking, swelling of right lower leg. Reports feels like phlebitis he has had in the past. Does take allopurinol for gout. Calculator: Modified Wells score for deep vein thrombosis (DVT) in adults ? [] Active cancer (treatment ongoing or within the previous six months or palliative) (1 point) [x] Paralysis, paresis, or recent plaster immobilization of the lower extremities (1 point) [] Recently bedridden for more than three days or major surgery within four weeks (1 point) [] Localized tenderness along the distribution of the deep venous system (1 point) [x] Entire leg swollen (1 point) [] Calf swelling by more than 3 cm when compared with the asymptomatic leg (measured below tibial tuberosity) (1 point) [x] Pitting edema (greater in the symptomatic leg) (1 point) [] Collateral superficial veins (nonvaricose) (1 point) [x] Alternative diagnosis as likely or more likely than that of DVT (-2 points) [] Previously documented DVT (1 point) ? Total criteria point count: 1 ? No recent hospital or ED visits. No new medical problems or medications. Able to obtain medications. No problems with taking medications or note side effects. 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, cognitive deficits - Hyperlipidemia 07/24/2015 - Impaired glucose metabolism 07/24/2015 - Patent foramen ovale 05/2005 small, negative bubble study 01/15/2015 - Seasonal allergies 10/01/2015 PAST SURGICAL HISTORY Procedure Laterality Date - COLONOSCOP W/ OR W/O [facility] SPEC 2005 Colonoscopy, negative - COLONOSCOP W/ OR W/O [facility] SPEC 10/15/15 Colonoscopy - LEFT HEART CATH,PERCUTANEOUS 03/19/2016 Cardiac cath, L heart FAMILY HISTORY Problem Relation Age of Onset - Diabetes Father - Coronary Artery Disease Father - Stroke Father 79 - Cancer Mother 58 - Diabetes Brother - Stroke Brother - Coronary Artery Disease Brother - Peripheral Artery Disease Brother amputee - None Sister - Colon Cancer Paternal Grandfather - Arthritis Sister rheumatoid - Cancer Sister lung cancer - GI Sister Crohn's - Skin Cancer Sister Social History Substance Use Topics - Smoking status: Former Smoker Packs/day: 0.50 Years: 8.00 Types: Cigarettes Quit date: 09/21/1979 - Smokeless tobacco: Former User Types: Snuff Quit date: 07/22/2017 - Alcohol use 36.0 oz/week 24 Cans of Beer (12oz) per week Comment: CAGE negative. ALLERGIES: ALLERGIES No Known Allergies MEDICATIONS tamsulosin ER (FLOMAX) 0.4 mg cp24 Take 1 capsule by mouth daily at bedtime. lisinopril (ZESTRIL) 10 mg tablet Take 1 tablet by mouth once daily. PARoxetine (PAXIL) 20 mg tablet Take 1 tablet by mouth once daily. atorvastatin (LIPITOR) 20 mg tablet Take 1 tablet by mouth daily at bedtime. For cholesterol. allopurinol (ZYLOPRIM) 300 mg tablet Take 1 tablet by mouth once daily. colchicine 0.6 mg tablet Take 2 tablets by mouth once as needed for gout attack. Take 1 tablet one hour later as needed. Etodolac 500 mg tablet Take 1 tablet by mouth twice daily as needed (gout attack. Take with food.). B Complex Vitamins (SUPER B-50 COMPLEX) capsule Take 1 capsule by mouth once daily. aspirin, enteric coated (ADULT LOW DOSE ASPIRIN) 81 mg EC tablet Take 1 tablet by mouth twice daily. REVIEW OF SYSTEMS: GENERAL: Negative for: Weight loss or gain, Fever or Chills, Weakness and Sleep difficulties. Physical Examination: BP 124/88 Pulse 92 Resp 16 Wt 265 lb (120.2kg) BP w/Orthostatic Vitals Date and Time Orthostatic BP Orthostatic Pulse BP Pulse BP Position BP Site BP Cuff Size 08/23/18 1129 -- -- 124/88 92 Sitting Left Arm Large Adult Peak Flow Date and Time PF Resp 08/23/18 1129 -- 16 General appearance: Well appearing, alert, in no acute distress, well-hydrated, well nourished. Skin: Skin color, texture, turgor normal, no suspicious rashes or lesions Lungs: Lungs clear to auscultation. No wheezing, rhonchi, rales Heart: RRR without murmur, gallop, or rubs. No ectopy Extremities: + redness and warmth right great toe, swelling of foot and ankle on right, no clubbing or cyanosis. Good capillary refill. Musculoskeletal: Pain with ankle motion, flexion , extension Peripheral pulses: Normal Neuro: Gait normal. Sensation grossly intact. Reviewed chart, outside records, tests I personally interviewed, confirmed and edited the above information if obtained by others. TESTING: Glucose (mg/dL) Date Value 03/30/2018 121 Potassium (mmol/L) Date Value 03/30/2018 4.3 Sodium (mmol/L) Date Value 03/30/2018 135 Chloride (mmol/L) Date Value 03/30/2018 98 CO2 (mmol/L) Date Value 03/30/2018 27 Creatinine (mg/dL) Date Value 03/30/2018 0.94 BUN (mg/dL) Date Value 03/30/2018 16 Anion Gap (mmol/L) Date Value 03/30/2018 10 Calcium (mg/dL) Date Value 03/30/2018 9.6 Glucose (mg/dL) Date Value 03/30/2018 121 Potassium (mmol/L) Date Value 03/30/2018 4.3 Sodium (mmol/L) Date Value 03/30/2018 135 Chloride (mmol/L) Date Value 03/30/2018 98 CO2 (mmol/L) Date Value 03/30/2018 27 Creatinine (mg/dL) Date Value 03/30/2018 0.94 BUN (mg/dL) Date Value 03/30/2018 16 Anion Gap (mmol/L) Date Value 03/30/2018 10 Calcium (mg/dL) Date Value 03/30/2018 9.6 Protein, Total (g/dL) Date Value 09/30/2017 7.6 Albumin (g/dL) Date Value 09/30/2017 4.1 Bilirubin, Total (mg/dL) Date Value 09/30/2017 0.5 Alkaline Phosphatase (U/L) Date Value 09/30/2017 76 AST (U/L) Date Value 09/30/2017 21 ALT (U/L) Date Value 09/30/2017 21 Hemoglobin (g/dL) Date Value 09/30/2017 16.0 Hematocrit (%) Date Value 09/30/2017 48.7 WBC (k/uL) Date Value 09/30/2017 6.67 Cholesterol, Total (mg/dL) Date Value 09/30/2017 173 HDL Cholesterol (mg/dL) Date Value 09/30/2017 56 LDL Cholesterol (mg/dL) Date Value 09/30/2017 91 Triglyceride (mg/dL) Date Value 09/30/2017 132 Hemoglobin A1C Date Value Ref Range Status 03/30/2018 6.0 (H) 4.3 - 5.6 % Final 09/30/2017 6.0 (H) 4.3 - 5.6 % Final 03/20/2017 6.2 (H) 4.3 - 5.6 % Final Comment: [place] [employer] guidelines indicate that patients with HgbA1c in the range 5.7-6.4% are at increased risk for development of diabetes, and intervention by lifestyle modification may be beneficial. HgbA1c greater or equal to 6.5% is considered diagnostic of diabetes. 09/23/2016 6.4 (H) 4.3 - 5.6 % Final Comment: [place] [employer] guidelines indicate that patients with HgbA1c in the range 5.7-6.4% are at increased risk for development of diabetes, and intervention by lifestyle modification may be beneficial. HgbA1c greater or equal to 6.5% is considered diagnostic of diabetes. 10/23/2015 6.1 (H) 4.3 - 5.6 % Final Comment: [place] [employer] guidelines indicate that patients with HgbA1c in the range 5.7-6.4% are at increased risk for development of diabetes, and intervention by lifestyle modification may be beneficial. HgbA1c greater or equal to 6.5% is considered diagnostic of diabetes. Ejection Fraction: No results found IMPRESSION: Mr. Joe is a 63 year old man presents for follow up of ankle and leg pain, swelling After my examination and review of data, I make the following recommendations. PLAN AND RECOMMENDATIONS: 1. Acute right ankle pain - ICD9: 719.47, 338.19, ICD10: M25.571 (primary diagnosis) 2. Leg swelling - ICD9: 729.81, ICD10: M79.89 - D-DIMER - US LEG VEIN DVT UNL VAS LAB 3. Right calf pain - ICD9: 729.5, ICD10: M79.661 - D-DIMER - US LEG VEIN DVT UNL VAS LAB Redness of great toe,generalized swelling lower extremity, pain in ankle and calf Differential DVT vs gout flare Will check D dimer and US DVT today If negative, likely gout flare, treat with prednisone, follow up one week in clinic. If positive, anticoagulation as indicated Did take two ASA today Advised to go to ER if develops chest pain, shortness of breath, or severe worsening of symptoms. Discussed risks, benefits, alternatives, and potential side effects of medications. Mr. Joe expressed understanding and agreed with the plan. Pastora Beaulieu APRN.GLOBAL SAFETY OFFICER CNOV Observed: 08/23/2018 Status: COMPLETED Source: [place] 11:20 AM [facility] REPOSITORY Office Visit (INTMWS) SHANE JOE ([id number]) 1955 M Date Time Provider Department 08/23/18 11:20 AM PASTORA BEAULIEU ([facility]) INTMWS During your visit today, we recorded the following information about you: Pulse Respiration Blood pressure Weight 92/minute 16/minute 124/88 120.2 kg Pastora Beaulieu APRN.CNS 08/23/2018 12:16 PM Signed OUTPATIENT VISIT DATE August 23, 2018 OUTPATIENT VISIT TYPE ESTABLISHED PRIMARY CARE PHYSICIAN: Woo Chandler MD CHIEF COMPLAINT: Patient presents with: Ankle Pain: R ankle History of Present Illness: Shane Joe is a 63 year old male who was last seen 04/2018 by Woo Chandler MD. He has been seen in the past for ACTIVE PROBLEM LIST Impaired Glucose Metabolism Gout With Manifestations Hyperlipidemia Essential Hypertension Seasonal Allergies Depression Benign Non-Nodular Prostatic Hyperplasia With Lower Urinary Tract Symptoms Elevated Prostate Specific Antigen (Psa) Mild Left Inguinal Hernia Since the last visit, he states that he fell asleep in his recliner at home after drinking several beers and had his foot elevated on a table / hard surface for several hours on Thursday. Now noting redness of foot, pain in calf and ankle with flexion, extension and walking, swelling of right lower leg. Reports feels like phlebitis he has had in the past. Does take allopurinol for gout. Calculator: Modified Wells score for deep vein thrombosis (DVT) in adults ? [] Active cancer (treatment ongoing or within the previous six months or palliative) (1 point) [x] Paralysis, paresis, or recent plaster immobilization of the lower extremities (1 point) [] Recently bedridden for more than three days or major surgery within four weeks (1 point) [] Localized tenderness along the distribution of the deep venous system (1 point) [x] Entire leg swollen (1 point) [] Calf swelling by more than 3 cm when compared with the asymptomatic leg (measured below tibial tuberosity) (1 point) [x] Pitting edema (greater in the symptomatic leg) (1 point) [] Collateral superficial veins (nonvaricose) (1 point) [x] Alternative diagnosis as likely or more likely than that of DVT (-2 points) [] Previously documented DVT (1 point) ? Total criteria point count: 1 ? No recent hospital or ED visits. No new medical problems or medications. Able to obtain medications. No problems with taking medications or note side effects. 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, cognitive deficits - Hyperlipidemia 07/24/2015 - Impaired glucose metabolism 07/24/2015 - Patent foramen ovale 05/2005 small, negative bubble study 01/15/2015 - Seasonal allergies 10/01/2015 PAST SURGICAL HISTORY Procedure Laterality Date - COLONOSCOP W/ OR W/O BRSH SPEC 2005 Colonoscopy, negative - COLONOSCOP W/ OR W/O BRSH SPEC 10/15/15 Colonoscopy - LEFT HEART CATH,PERCUTANEOUS 03/19/2016 Cardiac cath, L heart FAMILY HISTORY Problem Relation Age of Onset - Diabetes Father - Coronary Artery Disease Father - Stroke Father 79 - Cancer Mother 58 - Diabetes Brother - Stroke Brother - Coronary Artery Disease Brother - Peripheral Artery Disease Brother amputee - None Sister - Colon Cancer Paternal Grandfather - Arthritis Sister rheumatoid - Cancer Sister lung cancer - GI Sister Crohn's - Skin Cancer Sister Social History Substance Use Topics - Smoking status: Former Smoker Packs/day: 0.50 Years: 8.00 Types: Cigarettes Quit date: 09/21/1979 - Smokeless tobacco: Former User Types: Snuff Quit date: 07/22/2017 - Alcohol use 36.0 oz/week 24 Cans of Beer (12oz) per week Comment: CAGE negative. ALLERGIES: ALLERGIES No Known Allergies MEDICATIONS tamsulosin ER (FLOMAX) 0.4 mg cp24 Take 1 capsule by mouth daily at bedtime. lisinopril (ZESTRIL) 10 mg tablet Take 1 tablet by mouth once daily. PARoxetine (PAXIL) 20 mg tablet Take 1 tablet by mouth once daily. atorvastatin (LIPITOR) 20 mg tablet Take 1 tablet by mouth daily at bedtime. For cholesterol. allopurinol (ZYLOPRIM) 300 mg tablet Take 1 tablet by mouth once daily. colchicine 0.6 mg tablet Take 2 tablets by mouth once as needed for gout attack. Take 1 tablet one hour later as needed. Etodolac 500 mg tablet Take 1 tablet by mouth twice daily as needed (gout attack. Take with food.). B Complex Vitamins (SUPER B-50 COMPLEX) capsule Take 1 capsule by mouth once daily. aspirin, enteric coated (ADULT LOW DOSE ASPIRIN) 81 mg EC tablet Take 1 tablet by mouth twice daily. REVIEW OF SYSTEMS: GENERAL: Negative for: Weight loss or gain, Fever or Chills, Weakness and Sleep difficulties. Physical Examination: BP 124/88 Pulse 92 Resp 16 Wt 265 lb (120.2kg) BP w/Orthostatic Vitals Date and Time Orthostatic BP Orthostatic Pulse BP Pulse BP Position BP Site BP Cuff Size 08/23/18 1129 -- -- 124/88 92 Sitting Left Arm Large Adult Peak Flow Date and Time PF Resp 08/23/18 1129 -- 16 General appearance: Well appearing, alert, in no acute distress, well-hydrated, well nourished. Skin: Skin color, texture, turgor normal, no suspicious rashes or lesions Lungs: Lungs clear to auscultation. No wheezing, rhonchi, rales Heart: RRR without murmur, gallop, or rubs. No ectopy Extremities: + redness and warmth right great toe, swelling of foot and ankle on right, no clubbing or cyanosis. Good capillary refill. Musculoskeletal: Pain with ankle motion, flexion , extension Peripheral pulses: Normal Neuro: Gait normal. Sensation grossly intact. Reviewed chart, outside records, tests I personally interviewed, confirmed and edited the above information if obtained by others. TESTING: Glucose (mg/dL) Date Value 03/30/2018 121 Potassium (mmol/L) Date Value 03/30/2018 4.3 Sodium (mmol/L) Date Value 03/30/2018 135 Chloride (mmol/L) Date Value 03/30/2018 98 CO2 (mmol/L) Date Value 03/30/2018 27 Creatinine (mg/dL) Date Value 03/30/2018 0.94 BUN (mg/dL) Date Value 03/30/2018 16 Anion Gap (mmol/L) Date Value 03/30/2018 10 Calcium (mg/dL) Date Value 03/30/2018 9.6 Glucose (mg/dL) Date Value 03/30/2018 121 Potassium (mmol/L) Date Value 03/30/2018 4.3 Sodium (mmol/L) Date Value 03/30/2018 135 Chloride (mmol/L) Date Value 03/30/2018 98 CO2 (mmol/L) Date Value 03/30/2018 27 Creatinine (mg/dL) Date Value 03/30/2018 0.94 BUN (mg/dL) Date Value 03/30/2018 16 Anion Gap (mmol/L) Date Value 03/30/2018 10 Calcium (mg/dL) Date Value 03/30/2018 9.6 Protein, Total (g/dL) Date Value 09/30/2017 7.6 Albumin (g/dL) Date Value 09/30/2017 4.1 Bilirubin, Total (mg/dL) Date Value 09/30/2017 0.5 Alkaline Phosphatase (U/L) Date Value 09/30/2017 76 AST (U/L) Date Value 09/30/2017 21 ALT (U/L) Date Value 09/30/2017 21 Hemoglobin (g/dL) Date Value 09/30/2017 16.0 Hematocrit (%) Date Value 09/30/2017 48.7 WBC (k/uL) Date Value 09/30/2017 6.67 Cholesterol, Total (mg/dL) Date Value 09/30/2017 173 HDL Cholesterol (mg/dL) Date Value 09/30/2017 56 LDL Cholesterol (mg/dL) Date Value 09/30/2017 91 Triglyceride (mg/dL) Date Value 09/30/2017 132 Hemoglobin A1C Date Value Ref Range Status 03/30/2018 6.0 (H) 4.3 - 5.6 % Final 09/30/2017 6.0 (H) 4.3 - 5.6 % Final 03/20/2017 6.2 (H) 4.3 - 5.6 % Final Comment: [place] [employer] guidelines indicate that patients with HgbA1c in the range 5.7-6.4% are at increased risk for development of diabetes, and intervention by lifestyle modification may be beneficial. HgbA1c greater or equal to 6.5% is considered diagnostic of diabetes. 09/23/2016 6.4 (H) 4.3 - 5.6 % Final Comment: [place] [employer] guidelines indicate that patients with HgbA1c in the range 5.7-6.4% are at increased risk for development of diabetes, and intervention by lifestyle modification may be beneficial. HgbA1c greater or equal to 6.5% is considered diagnostic of diabetes. 10/23/2015 6.1 (H) 4.3 - 5.6 % Final Comment: [place] [employer] guidelines indicate that patients with HgbA1c in the range 5.7-6.4% are at increased risk for development of diabetes, and intervention by lifestyle modification may be beneficial. HgbA1c greater or equal to 6.5% is considered diagnostic of diabetes. Ejection Fraction: No results found IMPRESSION: Mr. Joe is a 63 year old man presents for follow up of ankle and leg pain, swelling After my examination and review of data, I make the following recommendations. PLAN AND RECOMMENDATIONS: 1. Acute right ankle pain - ICD9: 719.47, 338.19, ICD10: M25.571 (primary diagnosis) 2. Leg swelling - ICD9: 729.81, ICD10: M79.89 - D-DIMER - US LEG VEIN DVT UNL VAS LAB 3. Right calf pain - ICD9: 729.5, ICD10: M79.661 - D-DIMER - US LEG VEIN DVT UNL VAS LAB Redness of great toe,generalized swelling lower extremity, pain in ankle and calf Differential DVT vs gout flare Will check D dimer and US DVT today If negative, likely gout flare, treat with prednisone, follow up one week in clinic. If positive, anticoagulation as indicated Did take two ASA today Advised to go to ER if develops chest pain, shortness of breath, or severe worsening of symptoms. Discussed risks, benefits, alternatives, and potential side effects of medications. Mr. Joe expressed understanding and agreed with the plan. Pastora Beaulieu APRN.GLOBAL SAFETY OFFICER Referring Provider: SELF [[id number]] Allergies As of Date: 08/23/2018 (No Known Allergies) Date Reviewed: 08/23/2018 Reviewed by: Uzma Jones LPN - Fully Assessed Reason for Visit: Ankle Pain [1036] Cmt: R ankle Primary Visit Diagnosis:Acute right ankle pain [M25.571] Other Visit Diagnoses:Leg swelling [M79.89] Right calf pain [M79.661] Order(s):D-DIMER [SQDDMER] Order #: [id number] FUTURE US LEG VEIN DVT UNL VAS LAB [[id number]] Order #: [id number] FUTURE Prescriptions as of 08/23/2018 Sig: TAMSULOSIN 0.4 MG CAPSULE Take 1 capsule by mouth daily* LISINOPRIL 10 MG TABLET Take 1 tablet by mouth once d* PAROXETINE 20 MG TABLET Take 1 tablet by mouth once d* ATORVASTATIN 20 MG TABLET Take 1 tablet by mouth daily * ALLOPURINOL 300 MG TABLET Take 1 tablet by mouth once d* COLCHICINE 0.6 MG TABLET Take 2 tablets by mouth once * ETODOLAC 500 MG TABLET Take 1 tablet by mouth twice * VITAMIN B COMPLEX CAPSULE Take 1 capsule by mouth once * ASPIRIN 81 MG TABLET,DELAYED * Take 1 tablet by mouth twice * Problem List As Of Date 08/23/2018 Noted Resolved Impaired glucose metabolism [R73.09] INVALID FOR* Gout with manifestations [M10.9] INVALID FOR* Hyperlipidemia [E78.5] INVALID FOR* Essential hypertension [I10] INVALID FOR* Seasonal allergies [J30.2] INVALID FOR* Depression [F32.9] INVALID FOR* Benign non-nodular prostatic hyperplasia with l*INVALID FOR* Elevated prostate specific antigen (PSA) [R97.2*INVALID FOR* Mild left inguinal hernia [K40.90] INVALID FOR* Encounter Status:Closed by PASTORA MONTGOMERY on 08/23/18 CNPN Observed: 08/23/2018 Status: COMPLETED Source: [place] 12:00 AM [facility] REPOSITORY Telephone (INTMWS) SHANE JOE ([id number]) 1955 Date Time Provider Department 08/23/18 WOO CHANDLER INTWS During your visit today, we recorded the following information about you: Martín Claros LPN 08/23/2018 4:17 PM Signed Patient calls to see if results have been received? Please review and advise. Pastora Beaulieu APRN.BIANCA 08/23/2018 4:55 PM Signed I do not see D-dimer result in care everywhere, sent to [facility] US negative for DVT. IMPRESSION --------- RIGHT SIDE - DEEP VEINS Negative for acute deep vein thrombosis. RIGHT SIDE - SUPERFICIAL VEINS Negative for superficial thrombophlebitis in the great saphenous vein and small saphenous vein. LEFT SIDE - DEEP VEINS Spontaneous and respirophasic flow noted in the common femoral vein. Recommend taking prednisone taper, script sent to pharmacy. He should call and let us know if not improving with treatment Exercise caution with ETOH intake, may exacerbate gout symptoms. Should return to clinic next week for a recheck Uzma Jones LPN 08/23/2018 5:21 PM Signed Patient notified of US results and recommendations and verbalized understanding. Woo Chandler MD 08/23/2018 6:12 PM Signed D dimer <0.27(low). Sent for scanning. Allergies As of Date: 08/23/2018 (No Known Allergies) Date Reviewed: 08/23/2018 Reviewed by: Uzma Jones LPN - Fully Assessed Reason for Visit: Results [95] Visit Diagnosis:Gout with manifestations [M10.9] Order(s):predniSONE (DELTASONE) 10 mg tabletTake 4 tabs daily x 3 days, then 3 tabs x 3 days, 2 tabs x 3 days, then 1 tab x3 days with food.Disp: 30 tabletRfl: 0 Prescriptions as of 08/23/2018 Sig: PREDNISONE 10 MG TABLET Take 4 tabs daily x 3 days, t* TAMSULOSIN 0.4 MG CAPSULE Take 1 capsule by mouth daily* LISINOPRIL 10 MG TABLET Take 1 tablet by mouth once d* PAROXETINE 20 MG TABLET Take 1 tablet by mouth once d* ATORVASTATIN 20 MG TABLET Take 1 tablet by mouth daily * ALLOPURINOL 300 MG TABLET Take 1 tablet by mouth once d* COLCHICINE 0.6 MG TABLET Take 2 tablets by mouth once * ETODOLAC 500 MG TABLET Take 1 tablet by mouth twice * VITAMIN B COMPLEX CAPSULE Take 1 capsule by mouth once * ASPIRIN 81 MG TABLET,DELAYED * Take 1 tablet by mouth twice * Problem List As Of Date 08/23/2018 Noted Resolved Impaired glucose metabolism [R73.09] INVALID FOR* Gout with manifestations [M10.9] INVALID FOR* Hyperlipidemia [E78.5] INVALID FOR* Essential hypertension [I10] INVALID FOR* Seasonal allergies [J30.2] INVALID FOR* Depression [F32.9] INVALID FOR* Benign non-nodular prostatic hyperplasia with l*INVALID FOR* Elevated prostate specific antigen (PSA) [R97.2*INVALID FOR* Mild left inguinal hernia [K40.90] INVALID FOR* Prescriptions ordered this encounter Disp Refills Start End PREDNISONE 10 MG TABLET 30 t* 0 08/23/2018 Sig: Take 4 tabs daily x 3 days, then 3 tabs x 3 days, 2 tabs x 3 days, then 1 tab x3 days with food. Encounter Status:Closed by UZMA JONES LPN on 08/23/18 CNNURSE Observed: 07/16/2018 Status: COMPLETED Source: [place] 10:20 AM [facility] REPOSIT[facility] Nurse Visit (FAMPWS) SHANE JOE ([id number]) 1955 M Date Time Provider Department 07/16[facility]18 10[facility] your visit today, we recorded the following information about you: Temperature 96.8 degrees Mehdi Martina ALEJANDRO 07/16/2018 10:19 AM Signed 63 year old male here for INACTIVATED INFLUENZA VACCINE. [id number] Season Patient is identified by name and date of : Yes [] CONTRAINDICATIONS color enhanced section Age less than 6 months? No Allergy to eggs, chicken, chicken feathers, or chicken dander? No Allergy to thimerosal (a preservative) or formaldehyde, gelatin? No History of severe reaction to any vaccine component or a previous dose of influenza vaccination? No History of Guillain-Robinson Syndrome within 6 weeks after a previous influenza vaccine? No Patient is not moderately or severely ill? No Current temperature greater or equal to 100.4F? No History of Bone Marrow Transplant prior 6 months or solid organ transplant in the past 3 months ? No History of fainting after a prior injection or medical procedure? No- ? If patient has fainted in the past, the CDC recommends sitting or lying down for 15 minutes after the vaccination. [] VERIFICATION color enhanced section Was the answer Yes for any of the above contraindications? No contraindications present. Acceptable to proceed with vaccine. Patient/guardian agrees the above answers are true to the best of their knowledge? Yes Flu vaccine information sheet given? Yes See immunization activity in [facility] for details of immunizations adminstered today. Patient age: [age] year old For The 0647-3573 Flu Season 6-35 months old: Fluzone 0.25 ml - IM (Preservative Free) 3 years of age: Fluzone 0.5 ml - IM (Preservative Free) 3 years and older: Fluzone 0.5 ml- IM-(with Preservatives) 65+ years old: 2-49 years old Fluzone High-Dose 0.5 ml - IM (Preservative Free) FLUMIST- intranasal REMEMBER: If patient is less than 9 years of age and this is the first vaccine of Influenza to be received in any flu season, they should receive a second dose in one months time. Referring Provider: WOO CHANDLER [[id number]] Allergies As of Date: 07/16/2018 (No Known Allergies) Date Reviewed: 04/05/2018 Reviewed by: Amie Huynh LPN - Fully Assessed Reason for Visit: Imm/Inj [58] Cmt: Flu Vaccine Primary Visit Diagnosis:Need for vaccination [Z23] Order(s):INFLUENZA VACCINE QUADRIVALENT AGE 3 YRS PLUS + IM [[id number]] Order #: [id number] Prescriptions as of 07/16/2018 Sig: TAMSULOSIN 0.4 MG CAPSULE Take 1 capsule by mouth daily* LISINOPRIL 10 MG TABLET Take 1 tablet by mouth once d* PAROXETINE 20 MG TABLET Take 1 tablet by mouth once d* ATORVASTATIN 20 MG TABLET Take 1 tablet by mouth daily * ALLOPURINOL 300 MG TABLET Take 1 tablet by mouth once d* COLCHICINE 0.6 MG TABLET Take 2 tablets by mouth once * ETODOLAC 500 MG TABLET Take 1 tablet by mouth twice * VITAMIN B COMPLEX CAPSULE Take 1 capsule by mouth once * ASPIRIN 81 MG TABLET,DELAYED * Take 1 tablet by mouth twice * Problem List As Of Date 07/16/2018 Noted Resolved Impaired glucose metabolism [R73.09] INVALID FOR* Gout with manifestations [M10.9] INVALID FOR* Hyperlipidemia [E78.5] INVALID FOR* Essential hypertension [I10] INVALID FOR* Seasonal allergies [J30.2] INVALID FOR* Depression [F32.9] INVALID FOR* Benign non-nodular prostatic hyperplasia with l*INVALID FOR* Elevated prostate specific antigen (PSA) [R97.2*INVALID FOR* Mild left inguinal hernia [K40.90] INVALID FOR* Encounter Status:Closed by MEHDI MACK LPN on 07/16/18 PROGRESS Observed: 07/16/2018 Status: COMPLETED Source: [place] 10:18 AM [facility] REPOS[facility] O ID: [id number] Author: Mehdi Mack LPN Service: (none) Author Type: (none) Type: Progress Notes Filed: 07/16/2018 10:19 AM Note Text: 63 year old male here for INACTIVATED INFLUENZA VACCINE. 0136-9926 Season Patient is identified by name and date of : Yes [] CONTRAINDICATIONS color enhanced section Age less than 6 months? No Allergy to eggs, chicken, chicken feathers, or chicken dander? No Allergy to thimerosal (a preservative) or formaldehyde, gelatin? No History of severe reaction to any vaccine component or a previous dose of influenza vaccination? No History of Guillain-Robinson Syndrome within 6 weeks after a previous influenza vaccine? No Patient is not moderately or severely ill? No Current temperature greater or equal to 100.4F? No History of Bone Marrow Transplant prior 6 months or solid organ transplant in the past 3 months ? No History of fainting after a prior injection or medical procedure? No- ? If patient has fainted in the past, the CDC recommends sitting or lying down for 15 minutes after the vaccination. [] VERIFICATION color enhanced section Was the answer Yes for any of the above contraindications? No contraindications present. Acceptable to proceed with vaccine. Patient/guardian agrees the above answers are true to the best of their knowledge? Yes Flu vaccine information sheet given? Yes See immunization activity in [facility] for details of immunizations adminstered today. Patient age: [age] year old For The 9835-6966 Flu Season 6-35 months old: Fluzone 0.25 ml - IM (Preservative Free) 3 years of age: Fluzone 0.5 ml - IM (Preservative Free) 3 years and older: Fluzone 0.5 ml- IM-(with Preservatives) 65+ years old: 2-49 years old Fluzone High-Dose 0.5 ml - IM (Preservative Free) FLUMIST- intranasal REMEMBER: If patient is less than 9 years of age and this is the first vaccine of Influenza to be received in any flu season, they should receive a second dose in one months time. CARDIOLOGY VISIT Observed: 05/05/2018 Status: F Source: [place] REPORT 11:50 AM [facility] REPOSITORY [facility] [address] [place] [address] OFFICE VISIT Date of Service: 04/23/18 MR#: [id number] Acct: [id number] Name: SHANE JOE Rep #: [id number] : 1955 Provider: LILIANA Gonzalez Age/Sex: 62/M Location: [facility] Status: Signed HPI HPI Details: SHANE JOE, is a 62 M who presents to the office today for a cardiovascular outpatient follow-up. He has a history of coronary artery disease, hyperlipidemia, cerebrovascular accident, and PFO. Pt. denies chest, arm, jaw, or neck discomfort. His exercise tolerance is stable. Pt. denies symptoms of CHF, palpitations, lightheadedness, dizziness, near syncope, or syncopal episodes. Pt. denies edema or claudication issues. Pt. denies orthopnea, PND, fever, chills, blood in urine, blood in stool, or myalgia. He notices some element of SOB when going up steps, but this improves quickly. He does acknowledge a decrease in energy and believes his depression may be a component. This comes and goes. He states when he is active his heart rate gets up to 120 and at times it feels it can take up to an hour for it to return to normal when overheated. He states not dealing with stress well. Intake Vital Signs04/23/18 Height 6 ft 04/23/18 Weight: 262 lb 04/23/18 Body Mass Index (BMI) 35.5 04/23/18 Blood Pressure 120/65 Intake Visit Reasons: 1 Y FU Environmental Analyst Required: No Is patient in pain?: Yes (diverticulitis started thursday) Allergies No Known Allergies Allergy (Verified 04/23/18 09:43) Medications Lisinopril [Zestril] 10 mg PO DAILY 03/14/16 [History Confirmed 04/23/18] Loratadine [Claritin] 10 mg PO DAILY 03/14/16 [History Confirmed 04/23/18] Paroxetine HCl [Paxil] 20 mg PO DAILY 03/14/16 [History Confirmed 04/23/18] allopurinol 100 mg tablet 100 mg PO QDAY 04/22/18 [History Confirmed 04/23/18] aspirin 81 mg chewable tablet 162 mg PO DAILY@0800 tab 04/22/18 [History Confirmed 04/23/18] atorvastatin 20 mg tablet 20 mg PO QDAY 04/22/18 [History Confirmed 04/23/18] colchicine 0.6 mg tablet 0.6 mg PO QDAY PRN 04/22/18 [History Confirmed 04/23/18] etodolac 500 mg tablet 500 mg PO ONCE 04/22/18 [History Confirmed 04/23/18] omega-3 fatty acids-fish oil 300 mg-500 mg capsule cap PO .QD cap 04/22/18 [History Confirmed 04/23/18] [facility] Medical History Atherosclerosis of coronary artery of [place] heart without angina pectoris (Chronic) Chest pain (Resolved) Shortness of breath (Resolved) Anxiety disorder (Chronic) Hyperlipidemia (Chronic) Hypertension (Chronic) Cerebrovascular disease (Chronic) Surgical History History of left heart catheterization (Resolved 03/14/16) Social History Smoking Status: Former smoker second hand exposure: No alcohol intake: current ROS Const Const: Positive for fatigue; negative for weakness, body ache, fever(s) or chills ENT ENT: Negative for dizziness Cardio Chest Pain: No Palpitations: No Edema: None Muscle aches with walking: None Resp Respiratory: Positive for SOB with activity (up steps); negative for SOB at rest, SOB orthopnea\SOB lying down or paroxysmal nocturnal dyspnea GI GI: Negative nausea, black,tarry stools, bright, red blood in stools or vomiting blood/hematemesis : Negative for hematuria or frequent nighttime urination/ nocturia Musc Musc: Negative for muscle aches/ myalgia Skin Skin: Negative non-healing lesions or rash Neuro Neuro: Negative for weakness, dizziness, lightheadedness, near syncope, syncope or orthostatic symptoms Endo Endo: Positive for fatigue Allergy Allergy/Immunology: Negative for rash Cardiology Exam Const Appearance: cooperative, healthy appearing, comfortable and no acute distress Nutritional Appearance: obese Orientation: alert, awake and oriented x3 Head Head: normal to inspection Ears: hearing grossly normal bilaterally Nose: external nose normal Face and Sinus: face symmetric Mouth: oral mucosae normal Eyes General: appearance normal, both eyes and all related structures Eyelids: eyelids normal Neck Neck: no JVD and normal visual inspection Carotids: normal carotid upstroke Chest Chest inspection: normal inspection of the chest and normal respiratory effort; negative cough Auscultation: Bilateral: Clear to Auscultation Cardio Rate: regular rate Rhythm: regular rhythm Heart sounds: S1 normal and S2 normal; negative rub or gallop GI GI: normal to inspection and obese Neuro General: alert, awake, oriented x3 and CN's II-XI intact bilaterally Skin Skin: no rashes or lesions noted Extremities Pulses: Normal: Right Posterior Tibial Pulse, Left Posterior Tibial Pulse, Right Radial Pulse, Left Radial Pulse Lower Extremity Edema: None: Bilateral Psych Psychological: normal affect Supplemental Info Echocardiogram from April 2016 showed normal LV size, estimated ejection fraction of 65%, mild tricuspid valve insufficiency, and diastolic dysfunction. Heart catheterization from February 2016 showed normal left main coronary artery, LAD with mild disease of 30%, LCx with no high-grade stenosis, dominant RCA with no high-grade stenosis, and preserved ejection fraction of 65%. Stress test from February 2016 showed evidence of mild inferior ischemia, a preserved ejection fraction, and no clinical angina noted. Assessment AND Plan 1. Atherosclerosis of morongo coronary artery of morongo heart without angina pectoris I25.10 Plan - JAYLEN Reyes Patient's heart catheterization February 2016 showed LAD with mild disease of 30% and a preserved ejection fraction. Overall his activity level is stable. He denies any chest pain or shortness of breath with activity other than going up steps at times. His main concern regarding heart rate taking a long time to return to normal is most likely related to sedentary lifestyle. He was asked to increase his overall activity level. We will continue current medications. We will continue to monitor. 2. Essential hypertension I10 Plan - JAYLEN Reyes Patient's blood pressure is well-controlled today in the office. We will continue to monitor this. We will not make any medication regimen changes. 3. Pure hypercholesterolemia E78.00; E78.0 Plan - JAYLEN Reyes Lipid panel from September 2017 triglycerides: 132, cholesterol: 173, HDL: 56, VLDL: 26, LDL: 91, TC:HDL ratio: 3.09, LDL:HDL: 1.63, non HDL cholesterol: 117. This is managed by primary care physician. He will continue the current statin medication. 4. PFO (patent foramen ovale) Q21.1 Plan - JAYLEN Reyes Patient's echocardiogram in April 2016 did not mention any substantial PFO. We will continue to monitor. Plan Detail Additional Comments - JAYLEN Reyes Discussed the above patient with Dr. Izaguirre, he agrees with the plan of care. Thank you for allowing us to participate in the patients plan of care, if you have any questions please do not hesitate to call. This note was generated using a voice recognition system and there may be incorrect words, spelling or punctuation that were not noted when reviewing the office note prior to saving. Follow Up 12 Months (DIRECTOR CALL) Coding Level of Care Code Off vis,est,level 3 Diagnoses Atherosclerosis of morongo coronary artery of morongo heart without angina pectoris I25.10 Coronary Disease-Associated Artery/Lesion type: morongo artery Essential hypertension I10 Hypertension type: essential hypertension Pure hypercholesterolemia E78.00; E78.0 Hyperlipidemia type: pure hypercholesterolemia PFO (patent foramen ovale) Q21.1 Coding Level of Care Code Off vis,est,level 3 Diagnoses Atherosclerosis of morongo coronary artery of morongo heart without angina pectoris I25.10 Coronary Disease-Associated Artery/Lesion type: morongo artery Essential hypertension I10 Hypertension type: essential hypertension Pure hypercholesterolemia E78.00; E78.0 Hyperlipidemia type: pure hypercholesterolemia PFO (patent foramen ovale) Q21.1 04/23/18 1109 <Electronically signed by Gordo ANDREWC> Date Gordo ANDREWC 05/05/18 1150<Electronically signed by Duglas Izaguirre MD> Cosigner Signature: Date (if applicable) Duglas Izaguirre MD CC: Woo Chandler MD PROGRESS Observed: 04/05/2018 Status: COMPLETED Source: [place] 8:46 AM [facility] REPOSITORY O ID: [id number] Author: Woo Chandler Service: (none) Author Type: Physician Type: Progress Notes Filed: 04/05/2018 8:53 AM Note Text: This note was created using JCDter. Subjective Shane Joe is a 62 year old male here for follow up. He regained weight loss with less adherence to dietary measures. His hypertension and glucose were stable. His PSA was stable. He mentioned vague, intermittent bilateral axillary discomfort for a few months with no mass, no rash, no pain. He associated this with sweating and a new detergent they were using. ACTIVE PROBLEM LIST Impaired Glucose Metabolism Gout With Manifestations Hyperlipidemia Essential Hypertension Seasonal Allergies Depression Benign Non-Nodular Prostatic Hyperplasia With Lower Urinary Tract Symptoms Elevated Prostate Specific Antigen (Psa) Mild Left Inguinal Hernia Current Outpatient Prescriptions: tamsulosin ER (FLOMAX) 0.4 mg cp24 Take 1 capsule by mouth daily at bedtime. lisinopril (ZESTRIL) 10 mg tablet Take 1 tablet by mouth once daily. PARoxetine (PAXIL) 20 mg tablet Take 1 tablet by mouth once daily. atorvastatin (LIPITOR) 20 mg tablet Take 1 tablet by mouth daily at bedtime. For cholesterol. allopurinol (ZYLOPRIM) 300 mg tablet Take 1 tablet by mouth once daily. colchicine 0.6 mg tablet Take 2 tablets by mouth once as needed for gout attack. Take 1 tablet one hour later as needed. Etodolac 500 mg tablet Take 1 tablet by mouth twice daily as needed (gout attack. Take with food.). aspirin, enteric coated (ADULT LOW DOSE ASPIRIN) 81 mg EC tablet Take 1 tablet by mouth twice daily. B Complex Vitamins (SUPER B-50 COMPLEX) capsule Take 1 capsule by mouth once daily. No current facility-administered medications for this visit. Review of Systems Constitutional: Negative. Respiratory: Negative. Cardiovascular: Negative. Gastrointestinal: Negative. Genitourinary: Negative. Hematological: Negative for adenopathy. Psychiatric/Behavioral: Negative. Objective BP 122/74 (BP Site: Left Arm, BP Position: Sitting, BP Cuff Size: Large Adult) Pulse 92 Temp 36.1 ?C (97 ?F) (Left Tympanic) Resp 16 Wt 119.7 kg (264 lb) BMI 36.56 kg/m? Physical Exam Constitutional: No distress. Cardiovascular: Normal heart sounds. Exam reveals no gallop. No murmur heard. Pulmonary/Chest: Breath sounds normal. He exhibits no mass. Right breast exhibits no mass. Left breast exhibits no mass. Musculoskeletal: He exhibits no edema. Skin: No rash noted. Component Latest Ref Rng AND Units 03/30/2018 Glucose 74 - 99 mg/dL 121 (H) BUN 9 - 24 mg/dL 16 Creatinine 0.73 - 1.22 mg/dL 0.94 Sodium 136 - 144 mmol/L 135 (L) Potassium 3.7 - 5.1 mmol/L 4.3 Chloride 97 - 105 mmol/L 98 CO2 22 - 30 mmol/L 27 Anion Gap 9 - 18 mmol/L 10 Calcium 8.5 - 10.2 mg/dL 9.6 eGFR- >60 eGFR-All Other Races . >60 Hemoglobin A1C 4.3 - 5.6 % 6.0 (H) Estimated Average Glucose mg/dL 126 PSA 0.00 - 2.59 ng/mL 2.65 (H) Uric Acid 4.0 - 8.1 mg/dL 5.4 Assessment and Plan 1. Impaired glucose metabolism - ICD9: 790.29, ICD10: R73.09 (primary diagnosis) Weight loss, low carb diet recommended. - HGB A1C 2. Essential hypertension - ICD9: 401.9, ICD10: I10 - good control 3. Hyperlipidemia, unspecified hyperlipidemia type - ICD9: 272.4, ICD10: E78.5 - good control - Continue current medication. - COMP METABOLIC PANEL - LIPID PANEL BASIC 4. Elevated prostate specific antigen (PSA) - ICD9: 790.93, ICD10: R97.20 Stable. - PSA/PROSTSPECAG DIAG 5. Depression, unspecified depression type - ICD9: 311, ICD10: F32.9 Controlled. 6. Gout with manifestations - ICD9: 274.89, ICD10: M10.9 Controlled. 7. Disturbance of skin sensation - ICD9: 782.0, ICD10: R20.9 Axillary, bilateral, likely from sweating, heat. Woo Chandler MD CNOV Observed: 04/05/2018 Status: COMPLETED Source: [place] 8:20 AM [facility] REPOSITORY Office Visit (INTMWS) JOANNESHANE ALLISON ([id number]) 1955 M Date Time Provider Department 04/05/18 8:20 AM WOO CHANDLER INTMWS During your visit today, we recorded the following information about you: Temperature Pulse Respiration Blood pressure 97 degrees 92/minute 16/minute 122/74 Weight 119.7 kg Woo Chandler MD 04/05/2018 8:53 AM Signed This note was created using NoteWriter. Subjective Shane Joe is a 62 year old male here for follow up. He regained weight loss with less adherence to dietary measures. His hypertension and glucose were stable. His PSA was stable. He mentioned vague, intermittent bilateral axillary discomfort for a few months with no mass, no rash, no pain. He associated this with sweating and a new detergent they were using. ACTIVE PROBLEM LIST Impaired Glucose Metabolism Gout With Manifestations Hyperlipidemia Essential Hypertension Seasonal Allergies Depression Benign Non-Nodular Prostatic Hyperplasia With Lower Urinary Tract Symptoms Elevated Prostate Specific Antigen (Psa) Mild Left Inguinal Hernia Current Outpatient Prescriptions: tamsulosin ER (FLOMAX) 0.4 mg cp24 Take 1 capsule by mouth daily at bedtime. lisinopril (ZESTRIL) 10 mg tablet Take 1 tablet by mouth once daily. PARoxetine (PAXIL) 20 mg tablet Take 1 tablet by mouth once daily. atorvastatin (LIPITOR) 20 mg tablet Take 1 tablet by mouth daily at bedtime. For cholesterol. allopurinol (ZYLOPRIM) 300 mg tablet Take 1 tablet by mouth once daily. colchicine 0.6 mg tablet Take 2 tablets by mouth once as needed for gout attack. Take 1 tablet one hour later as needed. Etodolac 500 mg tablet Take 1 tablet by mouth twice daily as needed (gout attack. Take with food.). aspirin, enteric coated (ADULT LOW DOSE ASPIRIN) 81 mg EC tablet Take 1 tablet by mouth twice daily. B Complex Vitamins (SUPER B-50 COMPLEX) capsule Take 1 capsule by mouth once daily. No current facility-administered medications for this visit. Review of Systems Constitutional: Negative. Respiratory: Negative. Cardiovascular: Negative. Gastrointestinal: Negative. Genitourinary: Negative. Hematological: Negative for adenopathy. Psychiatric/Behavioral: Negative. Objective BP 122/74 (BP Site: Left Arm, BP Position: Sitting, BP Cuff Size: Large Adult) Pulse 92 Temp 36.1 ?C (97 ?F) (Left Tympanic) Resp 16 Wt 119.7 kg (264 lb) BMI 36.56 kg/m? Physical Exam Constitutional: No distress. Cardiovascular: Normal heart sounds. Exam reveals no gallop. No murmur heard. Pulmonary/Chest: Breath sounds normal. He exhibits no mass. Right breast exhibits no mass. Left breast exhibits no mass. Musculoskeletal: He exhibits no edema. Skin: No rash noted. Component Latest Ref Rng AND Units 03/30/2018 Glucose 74 - 99 mg/dL 121 (H) BUN 9 - 24 mg/dL 16 Creatinine 0.73 - 1.22 mg/dL 0.94 Sodium 136 - 144 mmol/L 135 (L) Potassium 3.7 - 5.1 mmol/L 4.3 Chloride 97 - 105 mmol/L 98 CO2 22 - 30 mmol/L 27 Anion Gap 9 - 18 mmol/L 10 Calcium 8.5 - 10.2 mg/dL 9.6 eGFR- >60 eGFR-All Other Races . >60 Hemoglobin A1C 4.3 - 5.6 % 6.0 (H) Estimated Average Glucose mg/dL 126 PSA 0.00 - 2.59 ng/mL 2.65 (H) Uric Acid 4.0 - 8.1 mg/dL 5.4 Assessment and Plan 1. Impaired glucose metabolism - ICD9: 790.29, ICD10: R73.09 (primary diagnosis) Weight loss, low carb diet recommended. - HGB A1C 2. Essential hypertension - ICD9: 401.9, ICD10: I10 - good control 3. Hyperlipidemia, unspecified hyperlipidemia type - ICD9: 272.4, ICD10: E78.5 - good control - Continue current medication. - COMP METABOLIC PANEL - LIPID PANEL BASIC 4. Elevated prostate specific antigen (PSA) - ICD9: 790.93, ICD10: R97.20 Stable. - PSA/PROSTSPECAG DIAG 5. Depression, unspecified depression type - ICD9: 311, ICD10: F32.9 Controlled. 6. Gout with manifestations - ICD9: 274.89, ICD10: M10.9 Controlled. 7. Disturbance of skin sensation - ICD9: 782.0, ICD10: R20.9 Axillary, bilateral, likely from sweating, heat. Woo Chandler MD Referring Provider: WOO CHANDLER [[id number]] Allergies As of Date: 04/05/2018 (No Known Allergies) Date Reviewed: 04/05/2018 Reviewed by: Amie Huynh LPN - Fully Assessed Reason for Visit: F/U 6 Month [444] Primary Visit Diagnosis:Impaired glucose metabolism [R73.09] Other Visit Diagnoses:Essential hypertension [I10] Hyperlipidemia, unspecified hyperlipidemia type [E78.5] Elevated prostate specific antigen (PSA) [R97.20] Depression, unspecified depression type [F32.9] Gout with manifestations [M10.9] Disturbance of skin sensation [R20.9] Order(s):COMP METABOLIC PANEL [SQCMP] Order #: [id number] FUTURE LIPID PANEL BASIC [SQLIPB] Order #: [id number] FUTURE HGB A1C [UTIKL1F] Order #: [id number] FUTURE PSA/PROSTSPECAG DIAG [SQPSA] Order #: [id number] FUTURE Prescriptions as of 04/05/2018 Sig: TAMSULOSIN 0.4 MG CAPSULE Take 1 capsule by mouth daily* LISINOPRIL 10 MG TABLET Take 1 tablet by mouth once d* PAROXETINE 20 MG TABLET Take 1 tablet by mouth once d* ATORVASTATIN 20 MG TABLET Take 1 tablet by mouth daily * ALLOPURINOL 300 MG TABLET Take 1 tablet by mouth once d* COLCHICINE 0.6 MG TABLET Take 2 tablets by mouth once * ETODOLAC 500 MG TABLET Take 1 tablet by mouth twice * ASPIRIN 81 MG TABLET,DELAYED * Take 1 tablet by mouth twice * VITAMIN B COMPLEX CAPSULE Take 1 capsule by mouth once * Problem List As Of Date 04/05/2018 Noted Resolved Impaired glucose metabolism [R73.09] INVALID FOR* Gout with manifestations [M10.9] INVALID FOR* Hyperlipidemia [E78.5] INVALID FOR* Essential hypertension [I10] INVALID FOR* Seasonal allergies [J30.2] INVALID FOR* Depression [F32.9] INVALID FOR* Benign non-nodular prostatic hyperplasia with l*INVALID FOR* Elevated prostate specific antigen (PSA) [R97.2*INVALID FOR* Mild left inguinal hernia [K40.90] INVALID FOR* Medications Discontinued During This Encounter allopurinol (ZYLOPRIM) 300 mg tablet 30 t* 0 10/05/2017 04/05/2018 Route: ORAL Sig: Take 1 tablet by mouth once daily. For gout. Disc: Duplicate Entry atorvastatin (LIPITOR) 20 mg tablet 30 t* 0 10/05/2017 04/05/2018 Route: ORAL Sig: Take 1 tablet by mouth once daily. Disc: Duplicate Entry Marion-3 Fatty Acids (FISH OIL) 500 m* 0 10/02/2016 04/05/2018 Class: Historical Med Route: ORAL Sig: Take 2 capsules by mouth once daily. Disc: Reason for discontinue is not on file. Disposition: Return in about 6 months (around 10/06/2018). Follow-up and Disposition History Recorded Encounter Status:Closed by WOO CHANDLER MD on 04/05/18 BASIC METABOLIC PANL Collected: 03/30/2018 Status: F Source: [place] 7:[facility] REPOS[facility]ORY TYPE CODE TESTS RESULT OUT OF REFERENCE UNITS RANGE LAB GLU 74-99 mg/dL High Glucose 121 Result Comment: The [place] Diabetes Association (ADA) provides guidance for cutoff values for fasting glucose and random glucose. The ADA defines fasting as no caloric intake for at least 8 hours. Fas ting plasma glucose results between 100 to 125 mg/dL indicate increased risk for diabetes (prediabetes). Fasting plasma glucose results greater than or equal to 126 mg/dL meet the criteria for diagnosis of diabetes. In the absence of unequivocal hyperglycemia, results should be confirmed by repeat testing. In a patient with classic symptoms of hyperglycemia or hyperglycemic crisis, random plasma glucose results greater than or equal to 200 mg/dL meet the criteria for diagnosis of diabetes. Reference: Standards of Medical Care in Diabetes 2016, [place] Diabetes Association. Diabetes Care. 2016.39(Suppl 1). LAB BUN 9-24 mg/dL BUN 16 LAB CRET 0.73-1.22 mg/dL Creatinine 0.94 LAB NA 136-144 mmol/L Sodium Low 135 LAB K 3.7-5.1 mmol/L Potassium 4.3 LAB CL 97-105 mmol/L Chloride 98 LAB CO2 22-30 mmol/L CO2 27 LAB AGAP 9-18 mmol/L Anion Gap 10 LAB CA 8.5-10.2 mg/dL Calcium, Total 9.6 LAB GFRAA eGFR- Amer. >60 LAB GFRNAA . eGFR-All Other Races >60 Result Comment: eGFR (Estimated GFR) Units of measure: mL/min/1.73 meters squared eGFR is derived from the reexpressed MDRD Study equation using the following parameters: serum creatinine, age, gender and race. The creatinine assay has been calibrated to be traceable to IDMS. An eGFR <60 mL/min/1.73m2 for >3 months is consistent with chronic kidney disease. Refer to KDOQI guidelines for clinical interpretation. In patients with unstable renal function, e.g. those with acute kidney injury, the eGFR may not accurately reflect actual GFR. Performed By: #### BMP, URIC, PSA, HBA1C #### [facility] [place] [address] [place], [place] [address] URIC ACID Collected: 03/30/2018 Status: F Source: [place] 7:34 AM [facility] REPOSITORY TYPE CODE TESTS RESULT OUT OF RANGE REFERENCE UNITS LAB URIC 4.0-8.1 mg/dL Uric Acid 5.4 Performed By: #### BMP, URIC, PSA, HBA1C #### [facility] [place] [address] [place], [place] [address] PSA, DIAGNOSTIC Collected: 03/30/2018 Status: F Source: [place] 7:34 AM [facility] REPOSITORY TYPE CODE TESTS RESULT OUT OF REFERENCE UNITS RANGE LAB PSA 0.00-2.59 ng/mL PSA, High Diagnostic 2.65 Result Comment: Total PSA test methodology used is the Electrochemiluminescence Immunoassay. The presence of an abnormal result flag in this range (2.6 to 4.0 ng/mL) should not necessarily be an automatic indicator for prostate biopsy. For an individual patient, the significance of a PSA level should be interpreted in a broad clinical context, including age, race, family history, digital rectal exam, prostate size, results of prior te sting (prostate biopsy, free PSA, PCA3), and use of 5-alpha reductase inhibitors. Considering the high incidence of asymptomatic cancer in the general population that may not pose an ultimate risk to a patient, the decision to recommend urological evaluation or prostate biopsy should be individualized after consideration of all these factors. REFERENCE: Jose Ibrahim M.D., M.P.H., Delgado Glaser M.D., Ph.D., Jose G Monterroso M.D., Mallory Escamilla, M.P.H., Dawn Craig Sc.D. Effect of Verification Bias on Screening for Prostate Cancer by Measurement of Prostatic Specific Antigen. N Engl J Med 2003,349:335-42. Performed By: #### BMP, URIC, PSA, HBA1C #### [facility] [place] [address] [place], [place] [address] HEMOGLOBIN A1C Collected: 03/30/2018 Status: F Source: [place] 7:34 [facility] REPOSITORY TYPE CODE TESTS RESULT OUT OF REFERENCE UNITS RANGE LAB HGBA1C 4.3-5.6 % High Hemoglobin A1c 6.0 LAB HBA0 mg/dL Est. Average Glucose 126 Result Comment: eAG: (Estimated average glucose) is a calculated value from HgbA1c and is teleservices representative of the average blood glucose level in the last 2-3 month period. Performed By: #### BMP, URIC, PSA, HBA1C #### [facility] [place] [address] [place], [place] [address] ALLERGIES ALLERGIES DATE TYPE / CODE NAME / CODE REACTION SEVERITY SOURCE 04/23/2018 Drug No Known Unknown [facility] Allergy/416 Allergies/[id number] Hospital 307020(SNOM 0388(RXNORM) Repository ED CT) Drug NO KNOWN [facility] Class/91965 ALLERGIES [place] 1003(SNOMED Repository CT) ENCOUNTERS ENCOUNTERS ADMIT/DISCHARGE ACCOUNT NUMBER ADMITTING ENCOUNTER LOCATION SOURCE CLASS 10/07/2018/10/08/19 [id number] Ambulatory [place] 19 [facility] [place] Repository 09/28/2018/09/28/19 [id number] Ambulatory [address] [place] Repository 09/06/2018/09/07/20 [id number] IBRAHIMA BOONE, Ambulatory BBuilding:MS [place] [facility] URRoom: Health 0232Bed: A [facility] [place] Repository 08/23/2018/08/23/20 [id number] Ambulatory [address] Repository 08/23/2018 [id number] Ambulatory [facility] ding:LABSPEC Repository 08/23/2018/08/23/20 [id number] Ambulatory [address] [place] Repository 08/23/2018/08/24/20 [id number] Ambulatory [address] [place] Repository 07/16/2018/07/19/20 [id number] Ambulatory [address] [place] Repository 04/23/2018/04/23/20 [id number] Ambulatory BMSBuilding: [place] 18 [facility] Repository 04/22/2018 [id number] Ambulatory BMSBuilding: [place] BMS.[facility] Repository 04/05/2018/04/06/20 [id number] Ambulatory [address] Repository 03/30/2018/03/30/20 [id number] Ambulatory [address] Repository PAYERS PAYERS ENCOUNTER GUARANTOR PAYER SUBSCRIBER SOURCE 09/06/2018 [facility] Primary Insurance:THE [facility] CAULIERDOB: HEALTH PLAN CAULIERDOB: [facility] [place] [id number] Tatianna INSCOPolicy Number: [id number] Repository QIAN [id number] Tatianna LAUGHLIN [facility] Date:2018-09-06 [place] [address] [id number] , [place] [address]Axc: Name:EDOUARD [address] [place], [place] ) [id number]: 08/23/2018 SHANE Donovan Primary SHANE Bentley [id number] Insurance:[place] CAULIERDOB: [facility] CARE [id number] [facility] [place] , [place] [address]Kki: Number: [id number] (HP) Date: [place], [place] [address]IQ: 08/23/2018 Secondary NOT GIVENUNK Sheree Insurance:SELF PAY [facility] Number: Effective Repository Date:2018-08-23 04/23/2018 SHANE S Primary SHANE Bentley [id number] Insurance:[place] CAULIERDOB: [facility] [id number] Hospital [place] [address]Klm: Number: [id number] (HP) Date: [place], [place] [address]GA: 04/23/2018 Secondary NOT GIVENUNK [place] Insurance:SELF PAY [facility] Number: Effective Repository Date:2017-09-08 04/22/2018 SHANE S Primary SHANE Bentley [id number] Insurance:[place] CAULIERDOB: [facility] [id number] Hospital [place]ARE[place] , [place] [address]Lzj: Number: [id number] (HP) Date: [place], [place] [address]SA: 04/22/2018 Secondary NOT GIVENUNK [place] Insurance:SELF PAY [facility] Number: Effective Repository Date:2018-04-22
== END ==
PROVIDERS: Family Provider Internal Medicine; PCP Internal Medicine; Referring Provider Internal Medicine; Visit Provider Internal Medicine
DX: M79.89 Other specified soft tissue disorders (principal); M79.661 Pain in right lower leg
CPT/HCPCS: 85379

== ENCOUNTER 2019-07-25 19:36 | Emergency (ER) | payer MEDICARE, SELFPAY ==
[2019-04-22 10:32] VITALS: BMI 35.2
[2019-07-25 19:37] VITALS: BP 141/82; PULSE 106; RESP 18; TEMP 36.7; O2SAT 94
[2019-07-25 19:38] VITALS: BP 141/82; PULSE 102; RESP 18; TEMP 36.7; O2SAT 94; BMI 35.8
--- NOTE | 2019-07-25 19:40 | EKG12_ITS ---
Test Reason : PALPITATIONS Blood Pressure : / mmHG Vent. Rate : 098 BPM Atrial Rate : 098 BPM P-R Int : 148 ms QRS Dur : 080 ms QT Int : 338 ms P-R-T Axes : 056 012 052 degrees QTc Int : 431 ms Normal sinus rhythm Poor R-Wave Progression Confirmed by LEVI BOONE, MADISON ([id number]), multimedia editor CINDY COLLADO ([id number]) on 07/27/2019 11:08:41 AM Referred By: EMILY Confirmed By:MADISON SIMS MD
--- NOTE | 2019-07-25 19:41 | ED.RN ---
RN CALLED FOR EKG, PULLED OLD EKGS FOR
--- NOTE | 2019-07-25 20:20 | RAD_ITS ---
STUDY: X-RAY CHEST REASON FOR EXAM: Male, 64 years old. Chest pain. TECHNIQUE: Single AP portable view of the chest. COMPARISON: March 14, 2016. FINDINGS: The lungs are clear and expanded. There is no demonstrated pleural abnormality. Normal size heart. Normal mediastinum and gaston. Normal visualized pulmonary arteries. There is mild atherosclerotic calcification of the aortic arch with tortuosity. There are diffuse degenerative changes of the visualized thoracic spine. There is degenerative osteoarthritis of the bilateral shoulders. There is no demonstrated abnormality of the visualized soft tissue structures of the upper abdomen. RAD/Chest 1 View (Portable) IMPRESSION: Degenerative changes, as described above. No demonstrated acute cardiopulmonary process. There is no interval change. Electronically Signed: Javier Murphy DO at 20:34 EST Tel [phone], Service support ,
[2019-07-25 20:31] LABS: Absolute Lymphocyte Count 2.77 X10^3/uL (0.83-4.51); Absolute Neutrophil Count 4.4 X10^3/uL (2.0-7.7); Basophil# 0.05 X10^3/uL; Basophil% 0.6 % (0-1); Eosinophil# 0.05 X10^3/uL; Eosinophils% 0.6 % (0-5); Hematocrit 43.7 % (40-54); Lymphocyte # 2.77 X10^3/ul (4.0); Lymphocyte % 35.1 % (19-41); Mean Corp Hgb Conc 34.3 g/dL (32-36); Mean Corpuscular Volume 90.3 fL (80-94); Mean Platelet Vol. 8.9 fl (6.2-12.0); Monocyte# 0.59 X10^3/uL; Monocyte% 7.5 % (0-10); NRBC Flagged by Analyzer 0 % (0-5); Neutrophil # 4.41 X10^3/uL (2.7-7.7); Neutrophil % 55.9 % (47-70); POSITIVE COUNT YES; Platelet Count 291 K/mm3 (150-450); RBC Distribution Width CV 13.4 % (11.6-14.6); RBC Distribution Width SD 44.9 fl (35.1-43.9); Red Blood Count 4.84 M/mm3 (4.6-6.2); White Blood Count 7.9 K/mm3 (4.4-11.0)
[2019-07-25 20:36] VITALS: O2SAT 97
[2019-07-25 20:37] LABS: Differential Indicated SCAN CRITERIA MET
[2019-07-25 20:52] LABS: Differential Comment SCANNED
[2019-07-25 20:55] LABS: Anion Gap 8 (5-15); BUN 12 mg/dL (7-18); BUN/Creat Ratio 12.1 RATIO (10-20); Calcium,Total 9.6 mg/dL (8.5-10.1); Chloride 108 mmol/L (98-107); EST Glomerular Filtration Rate 81 mL/min (>60); Est Glom Filt Rate - Afr Amer 98 mL/min (>60); Estimated Creatinine Clearance 82.99 ml/min; Glucose 148 mg/dL (74-106); Potassium 3.9 mmol/L (3.5-5.1); Sodium Level 140 mmol/L (136-145); Thyroid Stim Hormone (TSH) 5.64 uIU/mL (0.358-3.74)
[2019-07-25 21:37] VITALS: BP 135/81; PULSE 89; RESP 19; O2SAT 94
--- NOTE | 2019-07-25 22:01 | ED.VIS.GEN ---
History of Present Illness Chief Complaint: Palpitations Detail of Chief Complaint: Elevated heart rate and blood pressure Informant: Patient Onset: Today Narrative: Patient presents secondary to elevated heart rate and blood pressure. He has an apple watch and monitors his heart rate regularly. He states his heart rate is usually in the 70s and 80s. With activity it will go up to 140 or 150, but return to baseline once he sits to rest. Patient was working outside today. Even after sitting to rest he noted his heart rate would only come down to 105 or so. This is very abnormal for him. After sitting at rest for some time heart rate was still in the upper 90s. He states his blood pressure is usually 120/80 and his systolic pressure was in the 140s today. He denies chest pain. He does not feel his heart is beating irregularly. He denies any change in caffeine intake. There is been no [id number] medications taken. Past Medical History - Allergies and Home Meds Allergies/Adverse Reactions: Allergies No Known Allergies Allergy (Verified 07/25/19 19:37) Primary Care Physician: Woo Red MD [Primary Care Provider] - 5-7 Days Surgical History: no surgical history Lives: Spouse/ Significant Other Smoking Status: Current every day smoker - Family History Maternal Family History: Reports: Cancer Paternal Family History: Reports: Heart Disease, Stroke Sibling Family History: Reports: Diabetes Review of Systems General: Denies: Chills, Fever Eyes: Denies: Visual changes - bilaterally ENT: Denies: Bilateral ear pain Cardiovascular: Denies: Chest pain, Palpitations Respiratory: Denies: Dyspnea, Cough Gastrointestinal: Denies: Abdominal pain, Nausea, Vomiting Musculoskeletal: Denies: Arthralgias, Extremity Pain Skin: Denies: Rash Neurological: Denies: Headache, Weakness, Parasthesia Psych: Denies: Depression Allergy: Denies: Uticaria Physical Exam Vital Signs/Narrative: Vital Signs Temp Pulse Resp BP Pulse Ox 07/25/19 21:37 89 19 H 135/81 H 94 07/25/19 20:36 97 07/25/19 19:38 98.1 F 102 H 18 141/82 H 94 07/25/19 19:37 98.1 F 106 H 18 141/82 H 94 Inital Vital Signs reviewed: Yes General: Well nourished, Well developed Head: Normocephalic ENT: Moist mucous membranes Neck: Supple Cardiovascular: Regular rate, Regular rhythm Respiratory: No distress, CTA bilaterally Abdomen: Soft, Nontender Extremities: Nontender Skin: Normal color, No rash Neurological: Alert, Oriented x3 Psychological: Normal affect Diagnostic/Tx/Re-eval Impressions Chest X-Ray 07/25/19 20:20 IMPRESSION: Degenerative changes, as described above. No demonstrated acute cardiopulmonary process. There is no interval change. Electronically Signed: Javier Murphy DO at 20:34 EST Tel [phone], Service support , 07/25/19 20:20 Chest 1 View (Portable) [RAD] Stat Laboratory Results 07/25/19 07/25/19 07/25/19 20:15 20:15 20:15 WBC 7.9 RBC 4.84 Hgb 15.0 Hct 43.7 MCV 90.3 MCH 31.0 MCHC 34.3 RDW Std Deviation 44.9 H RDW Coeff of Obed 13.4 Plt Count 291 MPV 8.9 Immature Gran % (Auto) 0.300 Neut % (Auto) 55.9 Lymph % (Auto) 35.1 [place] % (Auto) 7.5 Eos % (Auto) 0.6 Baso % (Auto) 0.6 Absolute Neuts (auto) 4.4 Absolute Lymphs (auto) 2.77 Nucleated RBC % 0 Differential Comment SCANNED Sodium 140 Potassium 3.9 Chloride 108 H Carbon Dioxide 24.0 Anion Gap 8 BUN 12 Creatinine 1.00 Estim Creat Clear Calc 82.99 Est GFR (MDRD) Af Amer 98 Est GFR (MDRD) Non-Af 81 BUN/Creatinine Ratio 12.1 Glucose 148 H Calcium 9.6 Troponin I < 0.015 TSH 5.64 H Free T4 0.85 - EKG Initial EKG Interpretation: Sinus Rhythm - Sinus at 98 with no acute ischemia. - Medical Decision Making Patient was ordered a liter IV fluids, but apparently IV line was not able to be established at the time of blood work. Patient refused further attempt for IV therefore did not receive any IV fluids. Repeat evaluation heart rate is in the mid 80s. Blood pressure is in the 130s systolic. I did advise him that his TSH is slightly elevated. T3 and free T4 have been sent. His primary care physician can follow-up with him this coming week to review his lab values and monitor any other changes in his heart rate. At this time patient is reassured that his heart is in regular sinus rhythm. He is encouraged to increase fluids over the next couple days. ED Disposition - Plan for ED Patient: Disposition: Home or Assisted Living Diagnosis: Palpitations Instructions: Palpitations Referrals: Woo Red MD [Primary Care Provider] - 5-7 Days
[2019-07-25 22:02] VITALS: RESP 16
[2019-07-25 22:27] LABS: T4 Free Direct 0.85 ng/dL (0.76-1.46)
== END 2019-07-25 22:00 | disposition home or self-care (01) ==
PROVIDERS: Emergency Provider Emergency Medicine; Family Provider Internal Medicine; PCP Internal Medicine
DX: R00.2 Palpitations (principal); F17.200 Nicotine dependence, unspecified, uncomplicated; Z82.49 Family history of ischemic heart disease and other diseases of the circulatory system
CPT/HCPCS: 71045; 80048; 84439; 84443; 84484; 85025; 93005; 96360; 99283; A4216